=== PATIENT | female | born 1955 | race Caucasian/White ===

== ENCOUNTER → 2016-09-29 | Outpatient (CLI) | payer OTHER ==
[~2016-09-29] MED LIST: /ACETCOD2T PO; ALLE180T33 PO; NORC1TAB4 PO; TYLE325T5 PO; [UNRECOGNIZED DRUG - CODE] PO
--- NOTE | 2016-09-30 02:40 | REP ---
Clinical: Renal stones. Technique: Supine view of the abdomen and pelvis. Comparison: 02/24/2016. Findings: Bilateral renal calculi (left greater than right) are suggested and measure up to approximately 7 mm overlying the left mid to lower pole. The vague ill-defined calcification overlies the left psoas muscle at the level of the iliac crest measuring approximately 11 mm and may represent ureteral calculus. Further evaluation of the urinary tract system is limited due to overlying bowel gas and technique. No evidence for bowel obstruction. No organomegaly. Skeletal structures demonstrate age-related changes. Impression: Bilateral nephroureterolithiasis as described above incompletely evaluated due to overlying bowel gas. Consider noncontrast CT of the abdomen and pelvis if necessary. Signed by Malcolm Miranda MD 09/30/2016 02:32 A
== END ==
LOC: M SMT 09:47
PROVIDERS: ATTEND Urology
DX: N20.0 Calculus of kidney (principal); N20.2 Calculus of kidney with calculus of ureter

== ENCOUNTER → 2016-10-10 | Outpatient (CLI) | payer OTHER ==
--- NOTE | 2016-10-10 09:00 | REP ---
Clinical: Nephrolithiasis. Comparison: 03/04/2016. Findings: Moderate left hydroureteronephrosis appears to be secondary to an 11 mm obstructing calculus in the proximal ureter at the L4 level (images 67 - 70). Multiple left intrarenal calculi measure up to approximately 8 mm while single nonobstructing right intrarenal calculus is also identified measuring 2 mm. Liver, spleen, pancreas, gallbladder, and bilateral adrenal glands are normal. The enteric system is without obstruction or acute inflammatory process. Normal terminal ileum and appendix identified in the right lower quadrant. Pelvis demonstrates normal uterus and collapsed bladder. No ascites. No free air. No obvious adenopathy. Abdominal aorta is without aneurysm. Small fat containing periumbilical hernia measures 12 mm. Skeletal structures demonstrate age-related degenerative changes. Lung bases are essentially clear. Impression: 1. Moderate left-sided hydroureter nephrosis with 11 mm obstructing calculus in the mid ureter at the L4 level. 2 mm right intrarenal calculus and multiple left intrarenal calculi up to 8 mm. 2. 12 mm fat containing periumbilical hernia. 3. Age-related degenerative changes the musculoskeletal structures. Signed by Malcolm Miranda MD 10/10/2016 08:52 A
== END ==
LOC: M RAD 07:48
PROVIDERS: ATTEND Urology
DX: N20.0 Calculus of kidney (principal); K42.9 Umbilical hernia without obstruction or gangrene

== ENCOUNTER → 2016-10-11 | Outpatient (CLI) | payer OTHER ==
--- NOTE | 2016-10-11 11:58 | REP ---
Clinical: Nephrolithiasis . Comparison: 04/08/2016 . Technique: PA and lateral. Findings: The mediastinum and cardiac silhouette are normal. The lung gates are clear and without acute consolidation, effusion, or pneumothorax. The skeletal structures are intact and normal. Impression: 1. No acute cardiopulmonary process. Signed by Malcolm Miranda MD 10/11/2016 11:50 A
[2016-10-11 12:12] LABS: MEAN CORPUSCULAR HEMOGLOBIN 30.8 pg (27.0-33.0); MEAN CORPUSCULAR HGB CONC 34.4 g/dl (32.0-36.5); MEAN CORPUSCULAR VOLUME 89.7 fl (80.0-96.0); RED CELL DISTRIBUTION WIDTH 13.7 % (11.5-14.5); WHITE BLOOD COUNT 6.6 K/mm3 (4.0-10.0)
[2016-10-11 13:12] LABS: ALBUMIN/GLOBULIN RATIO 1.21 (1.00-1.93); ALKALINE PHOSPHATASE 123 U/L (45-117); ALT/SGPT 21 U/L (12-78); ANION GAP 8 MEQ/L (8-16); AST/SGOT 16 U/L (15-37); BLOOD UREA NITROGEN 17 MG/DL (7-18); CALCIUM LEVEL 9.3 MG/DL (8.8-10.2); CARBON DIOXIDE LEVEL 29 MEQ/L (21-32); CHLORIDE LEVEL 105 MEQ/L (98-107); GLOMERULAR FILTRATION RATE > 60.0 (>45); GLUCOSE, FASTING 78 MG/DL (80-110); POTASSIUM SERUM 3.6 MEQ/L (3.5-5.1); SODIUM LEVEL 142 MEQ/L (136-145); TOTAL PROTEIN 7.3 GM/DL (6.4-8.2)
--- NOTE | 2016-10-11 14:13 | ECGEPIP ---
Stationary ECG Study [facility] Test Date: 2016-10-11 Pat Name: VALENTINO LYONS Department: Room: - Gender: F Certified Surgical Tech/First Assistant: MAIA : [id number] Requested By: JOVANY Casillas Order Number: [id number] Reading MD: Su Echeverria Measurements Intervals [place] Rate: 77 P: 66 IA: 169 QRS: 8 QRSD: 118 T: 80 QT: 387 QTc: 441 Interpretive Statements SINUS RHYTHM WITH MARKED SINUS ARRHYTHMIA MODERATE INTRAVENTRICULAR CONDUCTION DELAY ILBBB ST & T-WAVE ABNORMALITY SIMILAR TO 04/08/16 Electronically Signed On 10-11-2016 14:13:26 EDT by Su Echeverria
== END ==
LOC: M LAB 11:06
PROVIDERS: ATTEND Urology
DX: N20.0 Calculus of kidney (principal)

== ENCOUNTER → 2016-10-12 | Day surgery (SDC) | payer OTHER ==
[~2016-10-12] VITALS: Ht 177.8 cm; Wt 96.6 kg
[~2016-10-12] MED LIST changes: +CONRAY-60 60% 50ML VIAL (Q9961) As Ordered ONE; +LIDOCAINE 2% INJ 100 MG/5 ML SDV (FOR ANES.) As Ordered ONE; +LR 1,000 ML IV SCH; +MIDAZOLAM INJ 2 MG/2 ML VIAL (J2250) As Ordered ONE; +ONDANSETRON 4MG/2ML VIAL (J2405) As Ordered ONE; +PROPOFOL 200 MG/20 ML VIAL As Ordered ONE; +dexameTHASONE 4 MG/ML 1ML VIAL (J1100) As Ordered ONE; +ePHEDrine SULFATE 25 MG/5 ML(5MG/ML) SYRINGE As Ordered ONE; +fentaNYL 100 MCG/2 ML INJECTION (J3010) As Ordered ONE
[2016-10-12 19:48] VITALS: BP 166/82
--- NOTE | 2016-10-13 07:42 | RO ---
DATE OF PROCEDURE: 10/12/2016 PREPROCEDURE DIAGNOSIS: Left kidney stone. POSTPROCEDURE DIAGNOSIS: Left kidney stone. PROCEDURE: Cystoscopy, left ureteroscopy with laser lithotripsy, left retrograde pyelogram with intraoperative interpretation of images, left ureteral stent placement. SURGEON: Dr. Kwasi Berry MACHINE RIGGER: None. ANESTHESIA: General. OPERATIVE INDICATIONS: This is a 60-year-old female with a long history of kidney stones who was originally found to have a 1 cm obstructing left ureteral stone as well as several stones inside the kidney. She was brought to the operating room today for treatment. DESCRIPTION OF PROCEDURE: The patient was brought to the operating room where general anesthesia was induced. Prophylactic antibiotics were infused. She was then placed in dorsal lithotomy position, prepped and draped in the usual sterile fashion. A rigid cystoscope was then inserted into the urethral meatus and advanced into the bladder. Once within the bladder, a wire was advanced up the left collecting system. Over the wire, we advanced ureteral access sheath up into the left collecting system. The wire was then secured to the drape to serve as a safety wire. We then went up the ureteral access sheath with a flexible ureteroscope. Within the mid ureter, 1 cm stone was seen. The stone was then fragmented into several tiny pieces using 200 Micron laser fiber. We then went up the more proximal ureter into the kidney. Within the kidney, several stones were seen, none of which were larger than 5 mm in size. All of these stones were then fragmented into tiny fragments that were small enough to pass. Once I confirmed that all the larger fragments had been dusted, a retrograde pyelogram was performed and was notable for moderate left hydronephrosis. At this point, the ureteroscope was withdrawn along with the ureteral access sheath and no additional large stones were seen. We then utilized the previously placed wire to advance a #6-Haitian x 22-32 cm JJ ureteral stent up to the left collecting system. The wire was then removed and there was adequate curl to the stent in the left renal pelvis and in the bladder. At this point, the bladder was then emptied of all fluid and this marked the conclusion of the procedure. The patient was then taken out of dorsal lithotomy position, awakened from anesthesia and transported to the recovery room in stable condition. ESTIMATED BLOOD LOSS: 0 mL. COMPLICATIONS: None. SPECIMENS: Kidney stone fragments. PLAN: The patient will followup in clinic in a few weeks for stent removal.
--- NOTE | 2016-10-13 08:35 | REP ---
Retrograde ureterogram: Three views. History: Nephrolithiasis. 24 seconds of fluoroscopy time is reported. Findings: A sequence of three fluoroscopically obtained last image hold spot radiographs of the left abdomen document left ureteral cannulation, contrast injection, left-sided hydronephrosis, and double pigtail left ureteral stenting. Signed by Tucker Chang MD 10/13/2016 08:36 A
== END | disposition home or self-care (01) ==
LOC: M SDC 14:44
PROVIDERS: ATTEND Urology
DX: N20.0 Calculus of kidney (principal); K76.0 Fatty (change of) liver, not elsewhere classified; R87.612 Low grade squamous intraepithelial lesion on cytologic smear of cervix (LGSIL); T88.59XD Other complications of anesthesia, subsequent encounter; Z88.2 Allergy status to sulfonamides; Z88.5 Allergy status to narcotic agent; Z91.048 Other nonmedicinal substance allergy status; Z91.018 Allergy to other foods; Z79.899 Other long term (current) drug therapy; Z78.0 Asymptomatic menopausal state
CPT/HCPCS: 52356; 74420; 82360; 88300; C1726; C1894; C2617; J0690; J1100; J2250; J2405; J3010; Q9961

== ENCOUNTER 2016-11-05 22:47 | Emergency (ER) | payer OTHER ==
[~2016-11-05] VITALS: Ht 177.8 cm; Wt 96.6 kg
[~2016-11-05 22:47] MED LIST changes: -CONRAY-60 60% 50ML VIAL (Q9961) As Ordered ONE; -LIDOCAINE 2% INJ 100 MG/5 ML SDV (FOR ANES.) As Ordered ONE; -LR 1,000 ML IV SCH; -MIDAZOLAM INJ 2 MG/2 ML VIAL (J2250) As Ordered ONE; -ONDANSETRON 4MG/2ML VIAL (J2405) As Ordered ONE; -PROPOFOL 200 MG/20 ML VIAL As Ordered ONE; -dexameTHASONE 4 MG/ML 1ML VIAL (J1100) As Ordered ONE; -ePHEDrine SULFATE 25 MG/5 ML(5MG/ML) SYRINGE As Ordered ONE; -fentaNYL 100 MCG/2 ML INJECTION (J3010) As Ordered ONE
[2016-11-05] MEDS: APIXABAN 5 MG TAB (ELIQUIS) PO ONE ×2 (23:13→23:49)
[2016-11-05 23:48] LABS: BASO % 0.4 % (0.0-1.0); EOS # 0.2 K/mm3 (0.0-0.50); EOS % 2.5 % (0.0-3.0); LARGE UNSTAINED CELL # 0.2 K/mm3 (0.0-0.4); LARGE UNSTAINED CELL % 1.9 % (0.0-4.0); LYMPH # 1.7 K/mm3 (1.5-4.5); LYMPH % 19.2 % (24.0-44.0); MEAN CORPUSCULAR HEMOGLOBIN 30.3 pg (27.0-33.0); MEAN CORPUSCULAR HGB CONC 34.1 g/dl (32.0-36.5); MEAN CORPUSCULAR VOLUME 88.8 fl (80.0-96.0); MONO # 0.5 K/mm3 (0.0-0.8); MONO % 5.9 % (0.0-5.0); NEUTROPHILS # 5.7 K/mm3 (1.8-7.7); PLATELET COUNT, AUTOMATED 242 k/mm3 (150-450); WHITE BLOOD COUNT 8.2 K/mm3 (4.0-10.0)
[2016-11-05 23:59] LABS: INR 0.89
[2016-11-06] MEDS ORDERED: diltiaZEM **CD** 180 MG CAP PO ONE
[2016-11-06 00:11] VITALS: BP 142/73
[2016-11-06 00:36] LABS: CREATININE FOR GFR 1.02 MG/DL (0.55-1.02); GLOMERULAR FILTRATION RATE 58.7 (>45); POTASSIUM SERUM 3.5 MEQ/L (3.5-5.1); THYROXINE (T4) 6.6 UG/DL (4.5-12.0)
[2016-11-06] MEDS ORDERED: NS 1,000 ML IV ONE (01:00)
[2016-11-06 02:57] VITALS: BP 154/99
[2016-11-06] MEDS ORDERED: ELIQ5TAB PO (03:03)
[2016-11-06] MEDS ORDERED: CARD180C4 PO (03:04)
== END 2016-11-06 03:24 | disposition home or self-care (01) ==
LOC: M ED 11-06 00:18
DX: I48.91 Unspecified atrial fibrillation (principal); E03.9 Hypothyroidism, unspecified; Z87.442 Personal history of urinary calculi; Z79.899 Other long term (current) drug therapy; Z88.2 Allergy status to sulfonamides; Z88.5 Allergy status to narcotic agent; Z91.09 Other allergy status, other than to drugs and biological substances

== ENCOUNTER → 2017-02-06 | Outpatient (CLI) | payer OTHER ==
[~2017-02-06] MED LIST changes: +CARD180C4 PO; +ELIQ5TAB PO
--- NOTE | 2017-02-06 15:05 | REP ---
Clinical: Nephrolithiasis. Comparison: 09/29/2016. Findings: Previously identified 11 mm left mid ureteral calculus appears to have resolved. Multiple nonobstructing left renal calculi are identified measuring up to approximately 8 mm and unchanged. Further evaluation of the urinary tract system is limited due to overlying bowel gas and technique. No evidence for bowel obstruction. No organomegaly. Skeletal structures demonstrate age-related degenerative changes. Impression: 1. Previous ureteral calculus appears to have resolved. 2. Multiple nonobstructing left renal calculi similar to prior examination up to 8 mm. Signed by Malcolm Miranda MD 02/06/2017 02:57 P
== END ==
LOC: M SMT 14:15
PROVIDERS: ATTEND Urology
DX: N20.0 Calculus of kidney (principal)

== ENCOUNTER → 2017-07-06 | Outpatient (CLI) | payer OTHER | LOC: M SLEEP 19:35 | DX: R06.83 Snoring (principal) | CPT/HCPCS: 95810 ==

== ENCOUNTER → 2017-08-03 | Outpatient (CLI) | payer OTHER | LOC: M SLEEP 19:32 | DX: G47.33 Obstructive sleep apnea (adult) (pediatric) (principal); G47.61 Periodic limb movement disorder | CPT/HCPCS: 95811 ==

== ENCOUNTER → 2017-08-08 | Outpatient (CLI) | payer OTHER | LOC: M SMT 14:11 | DX: N20.0 Calculus of kidney (principal) ==

== ENCOUNTER → 2017-09-13 | Outpatient (CLI) | payer OTHER | LOC: M WHC 13:45 | DX: Z12.31 Encounter for screening mammogram for malignant neoplasm of breast (principal); Z13.820 Encounter for screening for osteoporosis | CPT/HCPCS: 77067 ==

== ENCOUNTER → 2017-12-15 | Outpatient (CLI) | payer OTHER ==
[2017-12-15 12:43] LABS: HEMATOCRIT 44.2 % (36.0-47.0); HEMOGLOBIN 14.5 g/dl (12.0-15.5); MEAN CORPUSCULAR HEMOGLOBIN 30.7 pg (27.0-33.0); MEAN CORPUSCULAR HGB CONC 32.8 g/dl (32.0-36.5); MEAN CORPUSCULAR VOLUME 93.6 fl (80.0-96.0); PLATELET COUNT, AUTOMATED 228 10^3/uL (150-450); RED BLOOD COUNT 4.72 10^6/uL (4.00-5.40); RED CELL DISTRIBUTION WIDTH 13.1 % (11.5-14.5); WHITE BLOOD COUNT 7.6 10^3/uL (4.0-10.0)
[2017-12-15 13:09] LABS: ALBUMIN 3.8 GM/DL (3.2-5.2); ALBUMIN/GLOBULIN RATIO 1.03 (1.00-1.93); ALKALINE PHOSPHATASE 146 U/L (45-117); ALT/SGPT 26 U/L (12-78); ANION GAP 9 MEQ/L (8-16); AST/SGOT 19 U/L (7-37); BLOOD UREA NITROGEN 16 MG/DL (7-18); CALCIUM LEVEL 9.1 MG/DL (8.8-10.2); CARBON DIOXIDE LEVEL 27 MEQ/L (21-32); CHLORIDE LEVEL 107 MEQ/L (98-107); CHOLESTEROL LEVEL 279 MG/DL (<200); CHOLESTEROL RISK RATIO 5.264 (<5); CREATININE FOR GFR 0.87 MG/DL (0.55-1.30); FREE T4 0.81 NG/DL (0.76-1.46); GLOMERULAR FILTRATION RATE > 60.0 (>45); GLUCOSE, FASTING 85 MG/DL (70-100); HDL CHOLESTEROL 53 MG/DL (>40); LDL CHOLESTEROL 181.2 MG/DL (<100); NON-HDL-C 226 MG/DL; POTASSIUM SERUM 4.1 MEQ/L (3.5-5.1); SODIUM LEVEL 143 MEQ/L (136-145); TOTAL PROTEIN 7.5 GM/DL (6.4-8.2); TRIGLYCERIDES LEVEL 224 MG/DL (<150)
== END ==
LOC: M SMT 08:52
DX: I48.0 Paroxysmal atrial fibrillation (principal); E78.5 Hyperlipidemia, unspecified
CPT/HCPCS: 84443

== ENCOUNTER → 2018-05-14 | Outpatient (REF) | payer OTHER | LOC: M SFHCPLAZ 17:32 | PROVIDERS: ATTEND Dermatology | DX: D23.5 Other benign neoplasm of skin of trunk (principal) ==

== ENCOUNTER → 2018-06-08 | Outpatient (CLI) | payer OTHER ==
[2018-06-08 13:28] LABS: CHOLESTEROL RISK RATIO 4.745 (<5)
== END ==
LOC: M SMT 07:55
PROVIDERS: ATTEND Family Medicine
DX: E78.5 Hyperlipidemia, unspecified (principal)

== ENCOUNTER → 2018-08-10 | Outpatient (CLI) | payer OTHER ==
--- NOTE | 2018-08-10 14:29 | REP ---
KUB one-view History: Kidney stones Comparison: 08/08/2017 Air is present in small and large intestine. There are no air-fluid levels or dilated loops of intestine. There is no pneumoperitoneum. Calcifications are present overlying the left kidney consistent with nephrolithiasis. There is a possible punctate calcification overlying the right kidney. Impression: Left nephrolithiasis. Electronically Signed by Cali De La Garza MD 08/10/2018 02:21 P
== END ==
LOC: M SMT 13:50
PROVIDERS: ATTEND Urology
DX: N20.0 Calculus of kidney (principal)

== ENCOUNTER → 2018-09-14 | Outpatient (CLI) | payer OTHER ==
[~2018-09-14] MED LIST changes: -/ACETCOD2T PO; +ACET1TAB15 PO; -NORC1TAB4 PO; +NORC1TAB7 PO
--- NOTE | 2018-09-14 09:54 | REP ---
KUB: Single view. History: Kidney stones. Comparison KUB study August 10, 2018. Comparison CT study October 10, 2016. Findings: There are multiple large calculi projecting over the left lower pole renal silhouette and medially consistent with renal pelvic region of the junction stone. This and the junction calculus is a large calculus measuring 23 by 11 mm. This calculi are larger and more numerous than on the 2017 CT study. There is no significant change from the August 10, 2018 study. Impression: Upper tract calculi on the left including a 23 mm calcific density in the region of the ureteropelvic junction. Electronically Signed by Tucker Chang MD 09/14/2018 09:46 A
--- NOTE | 2018-09-14 10:34 | REP ---
CT abdomen and pelvis without IV or oral contrast: Renal stone protocol. History: Kidney stones. Comparison made with today's KUB. Comparison CT study is from October 10, 2016. CT findings: Preliminary digital seed packer radiograph shows urinary tract calculi in the left mid abdomen. Bowel gas pattern is unremarkable. Axial CT images demonstrate an minimal linear fibrosis in the lung bases. No pleural effusion is seen. No hepatic or splenic lesion is seen. No evidence of adrenal mass is observed. No abnormalities noted in the gallbladder or pancreas. Normal appendix is seen. Small and large intestinal bowel loops are unremarkable. No uterine or adnexal pathology is appreciated. There is bilateral intrarenal nephrolithiasis. There are two intrarenal calculi in the mid pole region of the right kidney, the largest of which measures 4 mm. There is no evidence of right-sided hydronephrosis. On the left, there is a large irregular calculus at the ureteropelvic junction producing moderate hydronephrosis of the left kidney. This calculus measures 2.0 cm in greatest craniocaudal span by CT. There is some UPJ mural thickening and periureteral stranding. There are multiple fairly large intrarenal calculi in the left kidney. These number 12-13 in total. The largest along the intrarenal calculi range in size up to 1.1 cm. No other ureteral calculus is seen. No bladder calculus is observed. There is a posterior peripheral cyst in the lower pole left kidney. This cyst is unchanged. Bone window settings show degenerative changes in the lumbar spine. Impression: Bilateral intrarenal nephrolithiasis. There is a 2 cm obstructing calculus in the ureteropelvic junction on the left with moderate hydronephrosis and some meche pelvic/periureteral edema. Multiple large intrarenal calculi are noted in the left kidney as well. Two smaller calculi are noted on the right. No right-sided hydronephrosis. Electronically Signed by Tucker Chang MD 09/14/2018 03:11 P
== END ==
LOC: M RAD 08:52
PROVIDERS: ATTEND Urology
DX: N20.0 Calculus of kidney (principal)

== ENCOUNTER → 2018-10-09 | Outpatient (CLI) | payer OTHER ==
[~2018-10-09] MED LIST changes: +ASPI81TA26 PO
--- NOTE | 2018-10-09 09:20 | REP ---
Clinical: Preoperative assessment . Comparison: 10/11/2016. Technique: PA and lateral. Findings: The mediastinum and cardiac silhouette are normal. Airway is patent and midline. The lung gates are clear and without acute consolidation, effusion, or pneumothorax. The skeletal structures are intact and normal. Impression: 1. No acute cardiopulmonary process. Electronically Signed by Malcolm Miranda MD 10/09/2018 09:11 A
[2018-10-09 13:37] LABS: HEMOGLOBIN 14.4 g/dl (12.0-15.5); MEAN CORPUSCULAR HEMOGLOBIN 29.9 pg (27.0-33.0); MEAN CORPUSCULAR VOLUME 93.6 fl (80.0-96.0); PLATELET COUNT, AUTOMATED 281 10^3/uL (150-450); RED BLOOD COUNT 4.81 10^6/uL (4.00-5.40); WHITE BLOOD COUNT 8.7 10^3/uL (4.0-10.0)
[2018-10-09 14:06] LABS: BLOOD UREA NITROGEN 16 MG/DL (7-18); CALCIUM LEVEL 9.2 MG/DL (8.8-10.2); CARBON DIOXIDE LEVEL 31 MEQ/L (21-32); CHLORIDE LEVEL 103 MEQ/L (98-107); GLOMERULAR FILTRATION RATE > 60.0 (>45); GLUCOSE, FASTING 86 MG/DL (70-100); POTASSIUM SERUM 4.1 MEQ/L (3.5-5.1); SODIUM LEVEL 139 MEQ/L (136-145)
== END ==
LOC: M SMT 08:52
PROVIDERS: ATTEND Urology
DX: Z01.818 Encounter for other preprocedural examination (principal); N20.0 Calculus of kidney; N39.0 Urinary tract infection, site not specified

== ENCOUNTER 2018-10-19 07:10 | Day surgery (SDC) | payer OTHER ==
[~2018-10-19] VITALS: Ht 177.8 cm; Wt 92.6 kg
[2018-10-19] MEDS ORDERED: ONDANSETRON 4MG/2ML VIAL (J2405) IV PRN ×2 (07:15→11:30)
[2018-10-19] MEDS ORDERED: fentaNYL 100 MCG/2 ML INJECTION (J3010) IV PRN ×2 (07:15→11:30)
[2018-10-19] MEDS ORDERED: LR 1,000 ML IV SCH ×2 (07:15→11:30)
[2018-10-19] MEDS ORDERED: PERCOCET 5MG/325MG TAB PO PRN (07:15)
[2018-10-19] MEDS ORDERED: ceFAZolin 2 GM/D5W 50 ML IV BAG (J0690 PER 500MG) As Ordered ONE (07:38)
[2018-10-19] MEDS ORDERED: ONDANSETRON 4MG/2ML VIAL (J2405) As Ordered ONE (08:14)
[2018-10-19] MEDS ORDERED: dexameTHASONE 4 MG/ML 1ML VIAL (J1100) As Ordered ONE (08:14)
[2018-10-19] MEDS ORDERED: PROPOFOL 200 MG/20 ML VIAL As Ordered ONE (08:14)
[2018-10-19] MEDS ORDERED: LIDOCAINE 2% INJ 100 MG/5 ML SDV (FOR ANES.) As Ordered ONE (08:14)
[2018-10-19] MEDS ORDERED: MIDAZOLAM INJ 2 MG/2 ML VIAL (J2250) As Ordered ONE (08:15)
[2018-10-19] MEDS ORDERED: fentaNYL 100 MCG/2 ML INJECTION (J3010) As Ordered ONE (08:15)
[2018-10-19] MEDS ORDERED: CONRAY-60 60% 50ML VIAL (Q9961) As Ordered ONE (08:39)
[2018-10-19] MEDS ORDERED: ePHEDrine SULFATE 25 MG/5 ML(5MG/ML) SYRINGE As Ordered ONE (09:54)
[2018-10-19] MEDS ORDERED: METOCLOPRAMIDE INJ 10MG/2ML VIAL (J2765) IV PRN (11:30)
[2018-10-19] MEDS ORDERED: NORCO, ANEXSIA 5/325MG TABLET (HYDROcodone/ACETAMINOPHEN) PO PRN (11:30)
--- NOTE | 2018-10-19 12:05 | REP ---
C-ARM VIEWS DURING LEFT URETERAL STENT PLACEMENT: Two C-Arm views demonstrate the left ureteral stent with the proximal end coiled in the region of the left renal pelvis and the distal end coiled in the region of the urinary bladder. 17 seconds of fluoroscopy time utilized. Electronically Signed by Rui Jones MD 10/23/2018 09:57 A
[2018-10-19 12:43] VITALS: BP 135/75
--- NOTE | 2018-10-19 16:16 | RO ---
DATE OF PROCEDURE: 10/19/2018 PREPROCEDURE DIAGNOSIS: Left kidney stones. POSTPROCEDURE DIAGNOSIS: Left kidney stones. PROCEDURE: Cystoscopy, left ureteroscopy with laser lithotripsy and basket extraction of stones, left retrograde pyelogram with intraoperative interpretation of images, left ureteral stent placement. SURGEON: Kwasi Berry MD FIELD CANE SCALER: None. ANESTHESIA: General. OPERATIVE INDICATIONS: This is a 63-year-old female with a long history of kidney stones who on recent CT scan was found to have obstructing 1-1/2 to 2 cm left ureteropelvic junction stone, as well as additional stones inside the kidney. She was brought to the operating room today for treatment. DESCRIPTION OF PROCEDURE: The patient was brought to the operating room and general anesthesia induced. Prophylactic antibiotics were infused. She was then placed in the dorsal lithotomy position and prepped and draped in the usual sterile fashion. A rigid cystoscope was inserted into the urethral meatus and advanced into the bladder. Once inside the bladder, a guidewire was advanced up the left collecting system. I then advanced the ureteral access sheath up the left collecting system. I went up the access sheath with a flexible ureteroscope and at the level of the ureteropelvic junction, a 1-1/2 to 2 cm size stone was seen. The stone was then fragmented into several smaller pieces using a 272 micron laser fiber. All the fragments were then removed using a basket. I then examined the kidney, and a few additional stones were seen within the kidney, the largest of which was approximately 6-7 mm. The larger stones were fragmented into smaller pieces and all the pieces were removed using a basket. Once done, the only stones remaining in the kidney were no more than 1 mm in size and were all small enough to pass. At this point, a retrograde pyelogram was performed, notable for moderate to severe left hydronephrosis, no extravasation. I then withdrew the ureteroscope along with the access sheath and no additional stones were seen within the ureter. I then utilized the previously placed wire to advance a 7-Estonian x 22-32 cm JJ ureteral stent up to the left collecting system. The wire was then removed, and there were adequate curls of the stent in the left renal pelvis and the bladder. The bladder was emptied of all fluids, and this marked the conclusion of the procedure. The patient was then taken out of the dorsal lithotomy position, awakened from anesthesia and transferred to the recovery room in stable condition. Estimated blood loss: 5 mL. Complications: None. Specimens: Kidney stone fragments. PLAN: The patient will followup in the clinic in a few weeks for stent removal.
[2018-10-27 00:14] LABS: CA Oxalate Dihy 10 % (.); Ca Ox Monohydrate 80 % (.)
== END 2018-10-19 12:45 | disposition home or self-care (01) ==
LOC: M SDC 07:10
PROVIDERS: ATTEND Urology
DX: N20.0 Calculus of kidney (principal); I48.0 Paroxysmal atrial fibrillation; G47.30 Sleep apnea, unspecified; Z79.82 Long term (current) use of aspirin; Z79.899 Other long term (current) drug therapy; Z88.2 Allergy status to sulfonamides; Z88.8 Allergy status to other drugs, medicaments and biological substances
CPT/HCPCS: 52356; 74420; 82360; 88300; C1769; C1894; C2617; J0690; J1100; J2250; J2405; J3010; Q9961

== ENCOUNTER → 2019-02-11 | Outpatient (CLI) | payer OTHER ==
[~2019-02-11] MED LIST changes: +CALC1CAP PO; +CLEAPOW10 PO; +POTA10808 PO; +VITA100054 PO
[2019-02-11 11:26] LABS: HEMATOCRIT 44.6 % (36.0-47.0); HEMOGLOBIN 14.5 g/dl (12.0-15.5); MEAN CORPUSCULAR HEMOGLOBIN 30.7 pg (27.0-33.0); MEAN CORPUSCULAR HGB CONC 32.5 g/dl (32.0-36.5); MEAN CORPUSCULAR VOLUME 94.5 fl (80.0-96.0); PLATELET COUNT, AUTOMATED 229 10^3/uL (150-450); RED BLOOD COUNT 4.72 10^6/uL (4.00-5.40); WHITE BLOOD COUNT 6.4 10^3/uL (4.0-10.0)
[2019-02-11 12:23] LABS: ALBUMIN 3.8 GM/DL (3.2-5.2); ALT/SGPT 21 U/L (12-78); BILIRUBIN,TOTAL 0.8 MG/DL (0.2-1.0); BLOOD UREA NITROGEN 19 MG/DL (7-18); CALCIUM LEVEL 9.2 MG/DL (8.8-10.2); CARBON DIOXIDE LEVEL 30 MEQ/L (21-32); CHLORIDE LEVEL 105 MEQ/L (98-107); CHOLESTEROL LEVEL 261 MG/DL (<200); CHOLESTEROL RISK RATIO 4.833 (<5); CREATININE FOR GFR 0.83 MG/DL (0.55-1.30); FREE T4 0.84 NG/DL (0.76-1.46); GLOMERULAR FILTRATION RATE > 60.0 (>45); GLUCOSE, FASTING 75 MG/DL (70-100); HDL CHOLESTEROL 54 MG/DL (>40); LDL CHOLESTEROL 166 MG/DL (<100); NON-HDL-C 207 MG/DL; POTASSIUM SERUM 4.1 MEQ/L (3.5-5.1); SODIUM LEVEL 143 MEQ/L (136-145); TOTAL PROTEIN 6.9 GM/DL (6.4-8.2); TRIGLYCERIDES LEVEL 205 MG/DL (<150)
== END ==
LOC: M SMT 09:13
PROVIDERS: ATTEND Family Medicine
DX: E78.5 Hyperlipidemia, unspecified (principal); I48.0 Paroxysmal atrial fibrillation

== ENCOUNTER → 2019-05-07 | Outpatient (CLI) | payer OTHER ==
[~2019-05-07] MED LIST changes: -CALC1CAP PO; -CLEAPOW10 PO; -POTA10808 PO; -VITA100054 PO
--- NOTE | 2019-05-07 16:57 | REP ---
KUB: Two views: History: Kidney stone. Comparison study CT exam September 14, 2018. Findings: There are multiple calcific opacities projecting over the left kidney lower pole region. The largest of these is 19 mm in greatest diameter. The large renal pelvic calculus seen at the time of the prior CT study is no longer apparent. No ureteral calculus is observed. No intrarenal calculus is seen projecting on the right. There is a calcification overlying the right psoas margin today however measuring 6 mm in diameter. This could be a ureteral stone. There are degenerative sclerotic changes in the SI joints and symphysis pubis. Impression: Intrarenal nephrolithiasis lower pole left kidney. Question right mid ureteral stone. Electronically Signed by Tucker Chang MD 05/07/2019 05:22 P
[2019-05-07 18:47] LABS: APPEARANCE, URINE HAZY (CLEAR); BACTERIA, URINE AUTO 1+ (NEGATIVE); BILIRUBIN, URINE AUTO NEGATIVE (NEGATIVE); BLOOD, URINE BLOOD 3+ (NEGATIVE); CALCIUM OXALATE CRYSTALS SMALL; COLOR, URINE YELLOW (YELLOW); GLUCOSE, URINE (UA) AUTO NEGATIVE (NEGATIVE); KETONE, URINE AUTO NEGATIVE (NEGATIVE); LEUKOCYTE ESTERASE, URINE AUTO 1+ (NEGATIVE); MUCUS, URINE SMALL (NEGATIVE); NITRITE, URINE AUTO NEGATIVE (NEGATIVE); PROTEIN, URINE AUTO 1+ mg/dL (NEGATIVE); RBC, URINE AUTO TNTC /HPF (0-3); SPECIFIC GRAVITY URINE AUTO 1.006 (1.002-1.035); SQUAMOUS EPITHELIAL CELL UR AU 0 /HPF (0-6); UROBILINOGEN, URINE AUTO 0.2 mg/dL (0.0-2.0); WBC, URINE AUTO 12 /HPF (0-3)
== END ==
LOC: M ADAMS 14:52
PROVIDERS: ATTEND Family Medicine
DX: N20.0 Calculus of kidney (principal); R39.89 Other symptoms and signs involving the genitourinary system

== ENCOUNTER → 2019-05-16 | Outpatient (CLI) | payer OTHER ==
--- NOTE | 2019-05-17 10:51 | REP ---
CT ABDOMEN AND PELVIS WITHOUT IV OR ORAL CONTRAST: HISTORY: Kidney stones. Comparison CT study September 14, 2018. CT FINDINGS: Digital preliminary urologic surgeon radiograph demonstrates mild levoconvex curve in the lumbar spine. Bowel gas pattern is normal. The lung bases are essentially clear on axial CT images. There is no evidence of pleural effusion or upper abdominal ascites. The liver and the spleen are normal in size homogeneous in texture. No adrenal lesion is seen. No abnormality is noted in the gallbladder or in the pancreas. No retroperitoneal mass or adenopathy is observed. There is bilateral intrarenal nephrolithiasis. The right kidney contains one intrarenal calculus 2-3 mm in size of at the upper pole collecting system. In the left kidney, there are multiple calculi in the lower pole collecting system including two adjacent fairly large calculi which may be in the parenchyma rather than in a ana luisa. These measure 8 and 11 mm in greatest diameter respectively. There is also a 7 mm calculus in the lower pole adjacent to this and several smaller calculi in the left kidney. There is no evidence of hydronephrosis on either side. No ureteral calculus is observed. No bladder calculus is seen. No uterine or ovarian abnormality is seen. Normal appendix is noted in the right lower quadrant. No abdominal wall defect seen. IMPRESSION: Bilateral intrarenal nephrolithiasis. No hydronephrosis seen. The large calculus noted in the renal pelvis and the hydronephrosis associated with this on the September 14, 2018 prior study have resolved. Electronically Signed by Tucker Chang MD 05/17/2019 12:07 P
== END ==
LOC: M RAD 15:42
PROVIDERS: ATTEND Urology
DX: N20.0 Calculus of kidney (principal)

== ENCOUNTER → 2019-06-11 | Outpatient (REF) | payer OTHER | LOC: M LAB REF 18:29 | PROVIDERS: ATTEND Dermatology | DX: D22.5 Melanocytic nevi of trunk (principal) ==

== ENCOUNTER → 2019-06-19 | Outpatient (REF) | payer OTHER ==
[~2019-06-19] MED LIST changes: +CALC1CAP PO; +CLEAPOW10 PO; +POTA10808 PO; +VITA100054 PO
== END ==
LOC: M SMT 13:03
PROVIDERS: ATTEND Urology
DX: Z01.818 Encounter for other preprocedural examination (principal); N20.0 Calculus of kidney; N39.0 Urinary tract infection, site not specified

== ENCOUNTER 2019-06-28 08:07 | Day surgery (SDC) | payer OTHER ==
[~2019-06-28] VITALS: Ht 177.8 cm; Wt 96.6 kg
[~2019-06-28 08:07] MED LIST changes: +LR 1,000 ML IV ONE; +ceFAZolin SOD 2 GM in IV 1 EA IV ONE
[2019-06-28] MEDS ORDERED: CONRAY-60 60% 50ML VIAL (Q9961) As Ordered ONE ×2 (08:08→10:24)
[2019-06-28] MEDS ORDERED: fentaNYL 100 MCG/2 ML INJECTION (J3010) As Ordered ONE (08:14)
[2019-06-28] MEDS ORDERED: LIDOCAINE 2% INJ 100 MG/5 ML SDV (FOR ANES.) As Ordered ONE (08:14)
[2019-06-28] MEDS ORDERED: propofoL 200 MG/20 ML VIAL As Ordered ONE (08:14)
[2019-06-28] MEDS ORDERED: ONDANSETRON 4MG/2ML VIAL (J2405) As Ordered ONE (08:14)
[2019-06-28] MEDS ORDERED: dexameTHASONE 4 MG/ML 1ML VIAL (J1100) As Ordered ONE (08:14)
[2019-06-28] MEDS ORDERED: MIDAZOLAM INJ 2 MG/2 ML VIAL (J2250) As Ordered ONE (08:14)
[2019-06-28] MEDS ORDERED: ePHEDrine SULFATE 25 MG/5 ML(5MG/ML) SYRINGE As Ordered ONE (11:06)
[2019-06-28] MEDS ORDERED: PHENYLephrine HCL 500 MCG/5 ML (100MCG/ML) SYRINGE (J2370) As Ordered ONE (11:21)
[2019-06-28] MEDS ORDERED: LR 1,000 ML IV SCH (13:00)
[2019-06-28] MEDS ORDERED: ONDANSETRON 4MG/2ML VIAL (J2405) IV PRN (13:00)
[2019-06-28] MEDS ORDERED: oxyBUTYnin 5 MG TAB PO PRN (13:00)
[2019-06-28] MEDS ORDERED: fentaNYL 100 MCG/2 ML INJECTION (J3010) IV PRN (13:00)
[2019-06-28] MEDS ORDERED: METOCLOPRAMIDE INJ 10MG/2ML VIAL (J2765) IV PRN (13:00)
--- NOTE | 2019-06-28 13:59 | REP ---
C-ARM VIEWS ABDOMEN DURING PLACEMENT OF LEFT URETERAL STENT: Two C-arm views of the abdomen performed. There is placement of a left ureteral stent with the proximal end coiled in the left renal pelvis and the distal end of the urinary bladder. Left pelvicaliceal system is partially opacified with contrast and is mild to moderately dilated. 31 seconds of fluoroscopy time utilized. Electronically Signed by Rui Jones MD 06/28/2019 03:34 P
[2019-06-28 14:00] VITALS: BP 149/73
--- NOTE | 2019-06-28 20:17 | RO ---
DATE OF PROCEDURE: 06/28/2019 PREPROCEDURE DIAGNOSIS: Left kidney stones. POSTPROCEDURE DIAGNOSIS: Left kidney stones. PROCEDURE: Cystoscopy, left ureteroscopy with laser lithotripsy and basket extraction of stones, left retrograde pyelogram with intraoperative interpretation of images, left ureteral stent placement. SURGEON: Kwasi Berry MD INDUSTRIAL SERVICER: None. ANESTHESIA: General. OPERATIVE INDICATIONS: This is a 63-year-old female with a history of kidney stones who was found to have recurrent kidney stones on the left. She was brought to the operating room today for the above listed procedure. DESCRIPTION OF PROCEDURE: The patient was brought to the operating room and general anesthesia was induced. Prophylactic antibiotics were infused. She was then placed in the dorsal lithotomy position and prepped and draped in the usual sterile fashion. A rigid cystoscope was then inserted into the urethral meatus and advanced to the bladder. A guidewire was then advanced up the left collecting system. I then advanced a ureteral access sheath up the left collecting system. I went up the access sheath with a flexible ureteroscope and examined the left kidney thoroughly. Within upper pole calyces, two stones were seen, each measuring around 3 mm in size. Both of these stones were grabbed with a basket and removed. Within a lower pole calyx, there appeared to be stones on fluoroscopy, but I could not see them directly inside the calyx with direct vision. Upon further inspection, there appeared to be a stenotic infundibulum, and the stones were trapped within that calyx. At this point, I utilized a 200 micron laser fiber to laser this area and open infundibulum up. This did reveal stones. I then utilized the laser to fragment some of these stones into smaller pieces, and the pieces were removed using a basket. Of note, considering the tight infundibulum and the small space of that calyx, I could not access all the stones, but it did appear that I got the majority of the stones inside out. At this point, a retrograde pyelogram was performed. It was notable for moderate left hydronephrosis, no extravasation. I then withdrew the ureteroscope along with the access sheath and no additional stones were seen within the ureter. I then utilized the previously placed wire to advance a 7-Estonian x 22-32 cm JJ ureteral stent into the left collecting system. The wire was removed, and there were adequate curls of the stent in the left renal pelvis and in the bladder. The bladder was emptied of all fluids, and this marked the conclusion of the procedure. The patient was taken out of the dorsal lithotomy position, awakened from anesthesia and transported to the recovery room in stable condition. Estimated blood loss: 5 mL. Complications: None. Specimens: Kidney stone fragments. PLAN: The patient will followup in the clinic in a few weeks for stent removal.
== END 2019-06-28 14:05 | disposition home or self-care (01) ==
LOC: M SDC 08:07
PROVIDERS: ATTEND Urology
DX: N20.0 Calculus of kidney (principal); I48.91 Unspecified atrial fibrillation; G47.30 Sleep apnea, unspecified; Z79.82 Long term (current) use of aspirin; Z79.899 Other long term (current) drug therapy; Z88.2 Allergy status to sulfonamides; Z88.5 Allergy status to narcotic agent
CPT/HCPCS: 52356; 74420; 82360; 88300; C1769; J0690; J1100; J2250; J2370; J2405; J3010; Q9961

== ENCOUNTER → 2019-08-06 | Outpatient (REF) | payer OTHER ==
[~2019-08-06] MED LIST changes: -LR 1,000 ML IV ONE; -ceFAZolin SOD 2 GM in IV 1 EA IV ONE
== END ==
LOC: M LAB REF 18:40
PROVIDERS: ATTEND Dermatology
DX: D22.5 Melanocytic nevi of trunk (principal)

== ENCOUNTER → 2020-03-10 | Outpatient (CLI) | payer OTHER ==
--- NOTE | 2020-03-13 08:49 | REP ---
ABDOMINAL RADIOGRAPHS: 03/10/20. CLINICAL: Kidney stone. TECHNIQUE: Single supine view of the abdomen and pelvis. FINDINGS: Multiple calcifications overlie the left kidney measuring up to approximately 11mm. Further evaluation of the urinary tract system is limited due to overlying bowel gas and technique. No bowel obstruction. Skeletal structures demonstrate age related degenerative changes. IMPRESSION: Presumed left renal calculi measuring up to 11mm. MTDD
== END ==
LOC: M RAD 09:43
PROVIDERS: ATTEND Urology
DX: N20.0 Calculus of kidney (principal)

== ENCOUNTER → 2020-03-24 | Outpatient (REF) | payer OTHER ==
[2020-03-24 17:35] LABS: HEMATOCRIT 44.6 % (36.0-47.0); MEAN CORPUSCULAR HEMOGLOBIN 29.7 pg (27.0-33.0); MEAN CORPUSCULAR HGB CONC 31.4 g/dl (32.0-36.5); MEAN CORPUSCULAR VOLUME 94.5 fl (80.0-96.0); PLATELET COUNT, AUTOMATED 238 10^3/uL (150-450); RED BLOOD COUNT 4.72 10^6/uL (4.00-5.40); WHITE BLOOD COUNT 7.3 10^3/uL (4.0-10.0)
[2020-03-24 18:14] LABS: ALBUMIN 3.9 GM/DL (3.2-5.2); ALT/SGPT 19 U/L (12-78); BILIRUBIN,TOTAL 0.9 MG/DL (0.2-1.0); BLOOD UREA NITROGEN 16 MG/DL (7-18); CALCIUM LEVEL 9.1 MG/DL (8.8-10.2); CARBON DIOXIDE LEVEL 30 MEQ/L (21-32); CHLORIDE LEVEL 105 MEQ/L (98-107); CHOLESTEROL LEVEL 235 MG/DL (<200); CHOLESTEROL RISK RATIO 4.351 (<5); CREATININE FOR GFR 0.96 MG/DL (0.55-1.30); FREE T4 0.82 NG/DL (0.76-1.46); GLOMERULAR FILTRATION RATE > 60.0 (>45); GLUCOSE, FASTING 110 MG/DL (70-100); HDL CHOLESTEROL 54 MG/DL (>40); LDL CHOLESTEROL 147 MG/DL (<100); NON-HDL-C 181 MG/DL; POTASSIUM SERUM 4.1 MEQ/L (3.5-5.1); SODIUM LEVEL 141 MEQ/L (136-145); TRIGLYCERIDES LEVEL 170 MG/DL (<150)
== END ==
LOC: M SFHCADAM 13:27
PROVIDERS: ATTEND Family Medicine
DX: I48.0 Paroxysmal atrial fibrillation (principal); E78.5 Hyperlipidemia, unspecified

== ENCOUNTER → 2020-06-15 | Outpatient (REF) | payer OTHER | LOC: M LAB REF 14:12 | PROVIDERS: ATTEND Dermatology | DX: D23.5 Other benign neoplasm of skin of trunk (principal) ==

== ENCOUNTER → 2020-09-28 | Outpatient (CLI) | payer MEDICARE, OTHER ==
--- NOTE | 2020-09-28 10:37 | REP ---
INDICATION: CALCULUS OF KIDNEY COMPARISON: 03/10/2020 TECHNIQUE: Supine view of the abdomen and pelvis. FINDINGS: Cluster of calcifications in the left mid abdomen measuring up to roughly 5-6 mm suggesting nephrolithiasis and similar to prior examination. Further evaluation of the urinary tract system is limited due to interposed bowel gas and technique. No bowel obstruction. No foreign body. No organomegaly. Skeletal structures demonstrate degenerative changes. IMPRESSION: Findings suggesting multiple nonobstructing left renal calculi. <Electronically signed by Malcolm Miranda > 09/28/20 [id number]
== END ==
LOC: M RAD 10:20
PROVIDERS: ATTEND Urology
DX: N20.0 Calculus of kidney (principal)

== ENCOUNTER → 2020-10-06 | Outpatient (CLI) | payer MEDICARE, OTHER ==
[2020-10-06 12:20] LABS: BLOOD UREA NITROGEN 17 MG/DL (7-18); CALCIUM LEVEL 9.4 MG/DL (8.8-10.2); CARBON DIOXIDE LEVEL 30 MEQ/L (21-32); CHLORIDE LEVEL 106 MEQ/L (98-107); GLOMERULAR FILTRATION RATE > 60.0 (>45); GLUCOSE, FASTING 141 MG/DL (70-100); MAGNESIUM LEVEL 2.1 MG/DL (1.8-2.4); POTASSIUM SERUM 4.1 MEQ/L (3.5-5.1); SODIUM LEVEL 142 MEQ/L (136-145)
== END ==
LOC: M LAB 11:12
PROVIDERS: ATTEND Physician Assistant
DX: I48.0 Paroxysmal atrial fibrillation (principal)
CPT/HCPCS: 36415; 80048; 83735; G0463

== ENCOUNTER 2020-11-02 10:36 | Observation (INO) | payer MEDICARE, OTHER ==
[~2020-11-02] VITALS: Ht 172.7 cm; Wt 93.2 kg
--- NOTE | 2020-11-02 13:53 | REP ---
INDICATION: gi bleed COMPARISON: 05/16/2019. TECHNIQUE: CT Scan of the abdomen and pelvis was performed without intravenous contrast. Sagittal and coronal reconstruction images performed. FINDINGS: Lung bases: Unremarkable. Liver: Grossly unremarkable. Gallbladder: Unremarkable. Spleen: Grossly unremarkable. Adrenals: Normal. Pancreas: Grossly unremarkable.. Kidneys: No hydronephrosis bilaterally. There is an extrarenal pelvis bilaterally. Ureters demonstrate no dilatation or calculus. Two punctate calcifications are seen in the right upper pole collecting system, 4 mm calcification is seen in the mid aspect, and another there are multiple intrarenal calculi throughout the left kidney, larger calculi are in the lower pole, measuring up to 1 cm in diameter. Is seen in the lower pole. There is a 1 cm cyst of the lower pole the left kidney. Small and large bowel: Grossly unremarkable. Free fluid: None. Abdominal aorta: No aneurysm. Adenopathy: None. Appendix: Not inflamed. Osseous structures: There are degenerative changes of the spine without compression deformity. Pelvis: There is a cystic structure in the right ovary unchanged since the prior study measuring 2.8 cm in maximum diameter.. No bladder calculus seen. IMPRESSION: Multiple intrarenal calculi bilaterally without hydroureteronephrosis. No acute abnormality. <Electronically signed by Rui Jones > 11/02/20 [id number]
[2020-11-02 14:15] LABS: BASO % 0.4 % (0.0-1.0); EOS # 0.1 10^3/uL (0.0-0.5); EOS % 1.1 % (0.0-3.0); HEMATOCRIT 28.2 % (36.0-47.0); HEMOGLOBIN 8.9 g/dl (12.0-15.5); LYMPH # 1.4 10^3/uL (1.5-5.0); LYMPH % 15.1 % (24.0-44.0); MEAN CORPUSCULAR HEMOGLOBIN 29.9 pg (27.0-33.0); MEAN CORPUSCULAR HGB CONC 31.6 g/dl (32.0-36.5); MEAN CORPUSCULAR VOLUME 94.6 fl (80.0-96.0); MONO # 0.6 10^3/uL (0.0-0.8); MONO % 6.3 % (2.0-8.0); NEUTROPHILS # 7.2 10^3/uL (1.5-8.5); NEUTROPHILS % 76.4 % (36.0-66.0); PLATELET COUNT, AUTOMATED 244 10^3/uL (150-450); RED BLOOD COUNT 2.98 10^6/uL (4.00-5.40); WHITE BLOOD COUNT 9.4 10^3/uL (4.0-10.0)
[2020-11-02 14:20] LABS: ALBUMIN 3.6 GM/DL (3.2-5.2); ALT/SGPT 22 U/L (12-78); BILIRUBIN,DIRECT 0.1 MG/DL (0.0-0.2); BILIRUBIN,TOTAL 0.5 MG/DL (0.2-1.0); BLOOD UREA NITROGEN 21 MG/DL (7-18); CARBON DIOXIDE LEVEL 29 MEQ/L (21-32); CHLORIDE LEVEL 109 MEQ/L (98-107); CREATININE FOR GFR 0.86 MG/DL (0.55-1.30); GLOMERULAR FILTRATION RATE > 60.0 (>45); GLUCOSE, FASTING 97 MG/DL (70-100); LIPASE 149 U/L (73-393); POTASSIUM SERUM 4.2 MEQ/L (3.5-5.1); SODIUM LEVEL 144 MEQ/L (136-145); TOTAL PROTEIN 6.3 GM/DL (6.4-8.2)
[2020-11-02 14:30] LABS: INR 0.86; PROTHROMBIN TIME 11.9 SECONDS (12.5-14.3)
[2020-11-02] MEDS ORDERED: D31000TA2 PO (15:26)
[2020-11-02] MEDS ORDERED: DILT1CAP3 PO (15:26)
[2020-11-02] MEDS ORDERED: KETO2SHA8 TOP (15:26)
[2020-11-02 16:00] LABS: RSV AMPLIFICATION NEGATIVE (NEGATIVE)
[2020-11-02 16:58] LABS: FERRITIN 10 NG/ML (8-252); IRON (FE) 22 UG/DL (50-170); LDH LACTATE DEHYDROGENASE 199 U/L (84-246); PERCENT SATURATION 5.9 % (13.2-45.0); TOTAL IRON BINDING CAPACITY 370 UG/DL (250-450)
[2020-11-02] MEDS ORDERED: PANTOPRAZOLE 40MG VIAL (C9113 PER 1) IV SCH (18:00)
[2020-11-02] MEDS: CALCIUM ACETATE 667MG GELCAP PO SCH (18:00)
--- NOTE | 2020-11-02 18:43 | HPEPDOC ---
General Date of Admission Nov 02, 2020 at 16:16 Date of Service: Nov 02, 2020 Chief Complaint The patient is a 65-year-old female admitted with a reason for visit of Anemia Gi Bleed. Source: Patient History of Present Illness Mrs. Mandujano is a 65 year old female with history of nephrolithiasis who presents with abdominal pain and melena. It all began on . She had epigastric pain that was intermittent. Abdominal pain could last anywhere from 10 min to 1 hour. Pain improved with food. Otherwise, she also had black diarrhea. She had 2 episodes of this on . Then her diarrhea resolved and she started to have dark brown stools. She spoke to her PCP who told her to come to the ED for evaluation. While in the ED, she was found to be anemic. Her baseline hemoglobin is around 14. On admission hemoglobin was 8.9. Otherwise patient denies any lightheadedness or dizziness, chest pain, dyspnea, or dysuria. Vital signs have been stable. Physical exam significant for epigastric abdominal tenderness. Patient be placed in observation for anemia possibly secondary to upper GI bleed. Home Medications Scheduled Aspirin (Aspirin EC) 81 Mg Tablet.dr, 162 MG PO DAILY, (Reported) Calcium Acetate (Calcium Acetate) 667 Mg Capsule, 667 MG PO BIDWM, (Reported) Cholecalciferol (Vitamin D3) (Vitamin D3) 1,000 Unit Tablet, 1,000 UNITS PO DAILY, (Reported) Diltiazem HCl (Diltiazem 24Hr ER) 180 Mg Cap.sa.24h, 180 MG PO DAILY, (Reported) Fexofenadine HCl (Malathi Allergy) 180 Mg Tab, 180 MG PO DAILY, (Reported) Ketoconazole (Ketoconazole) 120 Ml Shampoo, 5 ML TOP ASDIRECTED, (Reported) APPLY TO SCALP WHEN WASH HAIR Polyethylene Glycol 3350 (Clearlax) 116 Gm Powder, 17 GRAM PO QHS, (Reported) Potassium Citrate (Potassium Citrate ER) 10 Meq Tablet.er, 20 MG PO BID, (Reported) Allergies Coded Allergies: Sulfa (Sulfonamide Antibiotics) (Verified Allergy, Intermediate, hives, 06/17/19) TAPE (Verified Allergy, Intermediate, RASH, SKIN PEELS, 06/17/19) oxycodone (Verified Adverse Reaction, Intermediate, nausea; headaches- migraine, 06/17/19) Past Medical History Medical History 1. Nephrolithiasis, primary oxalosis per nephrology 2. Fatty liver disease 3. Abnormal Pap smear 4. Paroxysmal atrial fibrillation, converted to normal sinus rhythm 5. Hyperlipidemia 6. CARYL on CPAP Surgical History 1. Urethral stent placement in 1997 2. Lithotripsy 3. Cone biopsy 4. C-sections 5. D&C and hysteroscopy 6. Inguinal hernia 7. Left PCNL 8. Second look left PCNL 9. Ureteral stent insertion 2013 10. Left ESWL in 2014 11. EGD and colonoscopy in 2013 12. Ureteral stent placement 2018 13. Left stent removal 2019 Family History Father: Leukemia Mother: Diabetes mellitus, hypertension, heart disease, dementia Social History * Smoker: non-smoker Alcohol: Denies Drugs: denies A-FIB/CHADSVASC A-FIB History Current/History of A-Fib/PAF?: Yes Current PO Anticoag Therapy: No Treatment Reason Anticoagulant not given: Current bleeding Review of Systems Constitutional: Denies: Fever Eyes: Denies: Vision change ENT: Denies: Sore Throat Skin: Denies: Rash Pulmonary: Denies: Dyspnea, Cough Cardiovascular: Denies: Chest Pain Gastrointestinal: Reports: Abdominal Pain (epigastric pain), Melena (On ) Genitourinary: Denies: Dysuria Hematologic: Denies: Bruising Neurological: Denies: Numbness Psych: Denies: Anxiety, Depression Physical Examination General Exam: Positive: Alert, Cooperative Eye Exam: Positive: EOMI; Negative: Sclera icteric ENT Exam: Positive: Atraumatic Neck Exam: Positive: Supple Chest Exam: Positive: Clear to auscultation; Negative: Rales, Rhonchi, Wheezing Heart Exam: Positive: Rate Normal, Regular Rhythm Abdomen Exam: Positive: Normal bowel sounds, Soft; Negative: Tenderness Extremity Exam: Negative: Edema Neuro Exam: Positive: Normal Speech, Cranial Nerves 3-12 NL Psych Exam: Positive: Mental status NL, Mood NL Vital Signs Vital Signs Date Time Temp Pulse Resp B/P (MAP) Pulse Ox O2 Delivery O2 Flow Rate FiO2 11/02/20 17:21 78 16 96 Room Air 11/02/20 17:00 157/84 (108) 11/02/20 10:36 97.2 Laboratory Data Labs 24H Laboratory Tests 2 11/02/20 13:14: Prothrombin Time 11.9, Prothromb Time International Ratio 0.86 11/02/20 13:43: Immature Granulocyte % (Auto) 0.7, Neutrophils (%) (Auto) 76.4H, Lymphocytes (%) (Auto) 15.1L, Monocytes (%) (Auto) 6.3, Eosinophils (%) (Auto) 1.1, Basophils (%) (Auto) 0.4, Neutrophils # (Auto) 7.2, Lymphocytes # (Auto) 1.4L, Monocytes # (Auto) 0.6, Eosinophils # (Auto) 0.1, Basophils # (Auto) 0.0, Reticulocyte # (auto) 101.3H, Nucleated Red Blood Cells % (auto) 0.0, Percent Reticulocyte Count 3.3H, Reticulocyte Hemoglobin Equivalent 35.1, Anion Gap 6L, Glomerular Filtration Rate > 60.0, Calcium Level 9.0, Iron Level 22L, Total Iron Binding Capacity 370, Transferrin % Saturation 5.9L, Ferritin 10, Total Bilirubin 0.5, Direct Bilirubin 0.1, Aspartate Amino Transf (AST/SGOT) 18, Alanine Aminotransferase (ALT/SGPT) 22, Alkaline Phosphatase 104, Lactate Dehydrogenase 199, Total Protein 6.3L, Albumin 3.6, Albumin/Globulin Ratio 1.3, Lipase 149 11/02/20 14:54: Urine Color YELLOW, Urine Appearance CLOUDYH, Urine pH 8.0, Urine Specific [place] 1.009, Urine Protein NEGATIVE, Urine Glucose (UA) NEGATIVE, Urine Ketones NEGATIVE, Urine Blood NEGATIVE, Urine Nitrite NEGATIVE, Urine Bilirubin NEGATIVE, Urine Urobilinogen 0.2, Urine Leukocyte Esterase TRACEH, Urine WBC (Auto) 10H, Urine RBC (Auto) 52H, Urine Hyaline Casts (Auto) 0, Urine Bacteria (Auto) 1+H, Urine Squamous Epithelial Cells 0, Urine Calcium Oxalate Cryst (Auto) SMALL, Urine Sperm (Auto) 11/02/20 14:59: Coronavirus (COVID-19)(PCR) NEGATIVE, Influenza Type A (RT-PCR) NEGATIVE, Influenza Type B (RT-PCR) NEGATIVE, Respiratory Syncytial Virus (PCR) NEGATIVE CBC/BMP Laboratory Tests 11/02/20 13:43 Microbiology Microbiology 11/02/20 Urine Culture, Received Pending Assessment/Plan Mrs. Mandujano is a 65 year old female with history of nephrolithiasis who presents with abdominal pain and melena. At baseline, her hemoglobin was 14, but today it is 8.9. She reported melena and now darker stool. Will order repeat CBC in the morning. If hemoglobin is trending upwards, she would be able to be discharged tomorrow. If she continues to drop, she may need a scope. Plan / VTE VTE Prophylaxis Ordered?: Yes Plan Plan 1. Acute blood loss anemia -Hemoglobin dropped from a baseline of 14 to 8.9 -Patient reported melena on -Suspecting she had an upper GI bleed -May have resolved as her stools are not black but darker -Trend CBC -Occult stool ordered 2. Iron deficiency anemia -Iron 22, Ferritin 10 -Per PCP's note, patient's last colonoscopy was in 2013 -If patient does not have scope during his admission, patient will need outpatient colonoscopy 3. Epigastric pain -Better with food -Patient may have had an ulcer -IV Protonix -If no EGD, consider adding Carafate 4. Atrial fibrillation -Continue rate control with diltiazem -Patient reports only being on aspirin for anticoagulation 5. Allergies -Continue fexofenadine 6. DVT ppx -Possible GI bleed, no chemical ppx -SCD and TEDs Disposition: Pending CBC trend. SUSI YANES DO Nov 02, 2020 18:43
[2020-11-02 22:25] VITALS: BP 140/70
--- NOTE | 2020-11-03 05:24 | ECGEPIP ---
[facility] - ED Test Date: 2020-11-02 Pat Name: VALENTINO LYONS Department: Room: - Gender: Female Auto Service Advisor: vc : 1955 Requested By: Zak Everett Order Number: [id number] Reading MD: José Miguel Thomson Measurements Intervals Dows Rate: 69 P: 59 IA: 174 QRS: 16 QRSD: 108 T: 58 QT: 420 QTc: 450 Interpretive Statements Normal sinus rhythm Nonspecific ST and T wave abnormality previous tracing done 11-05-16 showed atrial fibrillation Electronically Signed on 11-03-2020 5:24:32 EDT by José Miguel Thomson
[2020-11-03 05:45] LABS: HEMATOCRIT 30.6 % (36.0-47.0); HEMOGLOBIN 9.5 g/dl (12.0-15.5); MEAN CORPUSCULAR HEMOGLOBIN 29.4 pg (27.0-33.0); MEAN CORPUSCULAR VOLUME 94.7 fl (80.0-96.0); PLATELET COUNT, AUTOMATED 270 10^3/uL (150-450); RED BLOOD COUNT 3.23 10^6/uL (4.00-5.40); WHITE BLOOD COUNT 9.2 10^3/uL (4.0-10.0)
[2020-11-03 06:00] VITALS: BP 132/74
[2020-11-03 06:04] LABS: BLOOD UREA NITROGEN 16 MG/DL (7-18); CALCIUM LEVEL 8.9 MG/DL (8.8-10.2); CARBON DIOXIDE LEVEL 30 MEQ/L (21-32); CHLORIDE LEVEL 106 MEQ/L (98-107); CREATININE FOR GFR 0.91 MG/DL (0.55-1.30); GLOMERULAR FILTRATION RATE > 60.0 (>45); GLUCOSE, FASTING 92 MG/DL (70-100); SODIUM LEVEL 141 MEQ/L (136-145)
[2020-11-03 08:55] VITALS: BP 131/75
[2020-11-03] MEDS: CALCIUM ACETATE 667MG GELCAP PO SCH (08:55)
[2020-11-03] MEDS ORDERED: VITAMIN D 1,000 INTERNATIONAL UNITS TABLET PO SCH (09:00)
[2020-11-03] MEDS ORDERED: FEXOFENADINE 60 MG TAB PO SCH (09:00)
[2020-11-03] MEDS ORDERED: diltiaZEM **CD** 180 MG CAP PO SCH (09:00)
[2020-11-03] MEDS ORDERED: PANT40TA29 PO (12:45)
[2020-11-03] MEDS ORDERED: FERR325T3 PO (12:47)
--- NOTE | 2020-11-03 13:01 | DS.PDOC ---
Discharge Summary General Date of Admission Nov 02, 2020 at 16:16 Date of Discharge 11/03/2020 Primary Care Physician: A Attending Physician: ASHLEY TINOCO MD Discharge Summary PROCEDURES PERFORMED DURING STAY: None ADMITTING DIAGNOSES: Anemia GIB DISCHARGE DIAGNOSES: History consistent with UGIB Iron deficiency anemia Fatty liver disease Paroxysmal atrial fibrillation Hyperlipidemia CARYL on CPAP Inguinal hernia COMPLICATIONS/CHIEF COMPLAINT: Anemia, GI Bleed. HISTORY OF PRESENT ILLNESS: 65 year old W with a history of nephrolithiasis who presented with abdominal pain and episodic melena. A few days prior to presentation, she developed epigas tric pain that was intermittent with pain that improved with food and she also noted black diarrhea. She had 2 episodes of this on . Then her diarrhea resolved and she started to have dark brown stools. She spoke to her PCP who told her to come to the ED for evaluation. HOSPITAL COURSE: While in the ED, she was found to be anemic. Her baseline hemoglobin is around 14. On admission hemoglobin was 8.9. Otherwise patient denied any lightheadedness or dizziness, chest pain, dyspnea, or dysuria. Vital signs were stable and wnl. Physical exam at presentation was significant for epigastric abdominal tenderness and she was admitted under observation status for likely UGIB. Her melena resolved and she had no episodes while inpatient. Her Hgb remained stable and was 9.4 on repeat. Anemia studies however revealed severe iron deficiency with pending B12 and folate levels. She otherwise tolerated a normal diet and without further episodes of melena and stable Hgb, she is now being discharged home with close PCP followup within 7d and referral to gastroenterology for Gi evaluation likely by EGD/colo for anemia due to chronic GI losses. Her last colonoscopy was in 2003. She is being discharged on BID pantoprazole 40mg and ferrous sulfate 325mg daily. DISCHARGE MEDICATIONS: Please see below. ALLERGIES: Please see below. PHYSICAL EXAMINATION ON DISCHARGE: General: NAD, AAOx3 Eyes: EOMI, anicteric ENT: Atraumatic, MMM Neck: Supple, no palpable adenopathy Chest: Clear to auscultation without rales, rhonchi or wheezing Heart: Rate Normal, Regular Rhythm, no m/r/g Abdomen Normal bowel sounds, Soft, nontender on my examination today Extremities, WWP, no LE edema Neuro: Normal Speech, Cranial Nerves 3-12 NL, grossly nonfocal examination Psych: Mental status NL, Mood NL, AOx3 LABORATORY DATA: Please see below. IMAGING: CT A/P: Lung bases: Unremarkable. Liver: Grossly unremarkable. Gallbladder: Unremarkable. Spleen: Grossly unremarkable. Adrenals: Normal. Pancreas: Grossly unremarkable.. Kidneys: No hydronephrosis bilaterally. There is an extrarenal pelvis bilatera lly. Ureters demonstrate no dilatation or calculus. Two punctate calcifications are seen in the right upper pole collecting system, 4 mm calcification is seen in the mid aspect, and another there are multiple intrarenal calculi throughout the left kidney, larger calculi are in the lower pole, measuring up to 1 cm in diameter. Is seen in the lower pole. There is a 1 cm cyst of the lower pole the left kidney. Small and large bowel: Grossly unremarkable. Free fluid: None. Abdominal aorta: No aneurysm. Adenopathy: None. Appendix: Not inflamed. Osseous structures: There are degenerative changes of the spine without compression deformity. Pelvis: There is a cystic structure in the right ovary unchanged since the prior study measuring 2.8 cm in maximum diameter.. No bladder calculus seen. IMPRESSION: Multiple intrarenal calculi bilaterally without hydroureteronephrosis. No acute abnormality. PROGNOSIS: Good ACTIVITY: As tolerated DIET: Regular DISCHARGE PLAN: PCP within 1w, GI referral to be evaluated within 2w, BID pantoprazole, daily ferrous sulfate DISPOSITION: Home DISCHARGE INSTRUCTIONS: PCP within 1w, GI referral to be evaluated within 2w, BID pantoprazole, daily fe rrous sulfate ITEMS TO FOLLOWUP ON ON OUTPATIENT: Likely UGIB ABIMAEL DISCHARGE CONDITION: Stable TIME SPENT ON DISCHARGE: 35 minutes. Vital Signs/I&Os Vital Signs Date Time Temp Pulse Resp B/P (MAP) Pulse Ox O2 Delivery O2 Flow Rate FiO2 11/03/20 08:55 63 131/75 11/03/20 06:00 97.8 17 97 Room Air I&O- Last 24 Hours up to 6 AM 11/03/20 06:00 Intake Total 200 ml Output Total 225 ml Balance -25 ml Laboratory Data Labs 24H Laboratory Tests 2 11/02/20 13:14: Prothrombin Time 11.9, Prothromb Time International Ratio 0.86 11/02/20 13:43: Immature Granulocyte % (Auto) 0.7, Neutrophils (%) (Auto) 76.4H, Lymphocytes (%) (Auto) 15.1L, Monocytes (%) (Auto) 6.3, Eosinophils (%) (Auto) 1.1, Basophils (%) (Auto) 0.4, Neutrophils # (Auto) 7.2, Lymphocytes # (Auto) 1.4L, Monocytes # (Auto) 0.6, Eosinophils # (Auto) 0.1, Basophils # (Auto) 0.0, Reticulocyte # (auto) 101.3H, Nucleated Red Blood Cells % (auto) 0.0, Percent Reticulocyte Count 3.3H, Reticulocyte Hemoglobin Equivalent 35.1, Anion Gap 6L, Glomerular Filtration Rate > 60.0, Calcium Level 9.0, Iron Level 22L, Total Iron Binding Capacity 370, Transferrin % Saturation 5.9L, Ferritin 10, Total Bilirubin 0.5, Direct Bilirubin 0.1, Aspartate Amino Transf (AST/SGOT) 18, Alanine Aminotransferase (ALT/SGPT) 22, Alkaline Phosphatase 104, Lactate Dehydrogenase 199, Total Protein 6.3L, Albumin 3.6, Albumin/Globulin Ratio 1.3, Lipase 149 11/02/20 14:54: Urine Color YELLOW, Urine Appearance CLOUDYH, Urine pH 8.0, Urine Specific [place] 1.009, Urine Protein NEGATIVE, Urine Glucose (UA) NEGATIVE, Urine Ketones NEGATIVE, Urine Blood NEGATIVE, Urine Nitrite NEGATIVE, Urine Bilirubin NEGATIVE, Urine Urobilinogen 0.2, Urine Leukocyte Esterase TRACEH, Urine WBC (Auto) 10H, Urine RBC (Auto) 52H, Urine Hyaline Casts (Auto) 0, Urine Bacteria (Auto) 1+H, Urine Squamous Epithelial Cells 0, Urine Calcium Oxalate Cryst (Auto) SMALL, Urine Sperm (Auto) 11/02/20 14:59: Coronavirus (COVID-19)(PCR) NEGATIVE, Influenza Type A (RT-PCR) NEGATIVE, Influenza Type B (RT-PCR) NEGATIVE, Respiratory Syncytial Virus (PCR) NEGATIVE 11/03/20 05:29: Nucleated Red Blood Cells % (auto) 0.0, Anion Gap 5L, Glomerular Filtration Rate > 60.0, Calcium Level 8.9 CBC/BMP Laboratory Tests 11/02/20 13:43 11/03/20 05:29 Microbiology Microbiology 11/02/20 Urine Culture - Final, Complete Discharge Medications Scheduled Aspirin (Aspirin EC) 81 Mg Tablet.dr, 162 MG PO DAILY, (Reported) Calcium Acetate (Calcium Acetate) 667 Mg Capsule, 667 MG PO BIDWM, (Reported) Cholecalciferol (Vitamin D3) (Vitamin D3) 1,000 Unit Tablet, 1,000 UNITS PO DAILY, (Reported) Diltiazem HCl (Diltiazem 24Hr ER) 180 Mg Cap.sa.24h, 180 MG PO DAILY, (Reported) Ferrous Sulfate (Ferrous Sulfate) 325 Mg Tablet.dr, 1 TAB PO DAILY Fexofenadine HCl (Malathi Allergy) 180 Mg Tab, 180 MG PO DAILY, (Reported) Ketoconazole (Ketoconazole) 120 Ml Shampoo, 5 ML TOP ASDIRECTED, (Reported) APPLY TO SCALP WHEN WASH HAIR Pantoprazole Sodium (Pantoprazole Sodium) 40 Mg Tablet.dr, 40 MG PO BID Polyethylene Glycol 3350 (Clearlax) 116 Gm Powder, 17 GRAM PO QHS, (Reported) Potassium Citrate (Potassium Citrate ER) 10 Meq Tablet.er, 20 MG PO BID, (Reported) Allergies Coded Allergies: Sulfa (Sulfonamide Antibiotics) (Verified Allergy, Intermediate, hives, ) TAPE (Verified Allergy, Intermediate, RASH, SKIN PEELS, 06/17/19) oxycodone (Verified Adverse Reaction, Intermediate, nausea; headaches- migraine, 06/17/19) ASHLEY TINOCO MD Nov 03, 2020 13:01
[2020-11-03 14:00] VITALS: BP 114/65
== END 2020-11-03 15:40 | disposition home or self-care (01) ==
LOC: M ED 10:36 → M ED INP 16:16 → ENRESERV 19:05 → M MSPAV 22:23
PROVIDERS: ADMIT Internal Medicine; ATTEND Internal Medicine
DX: K92.2 Gastrointestinal hemorrhage, unspecified (principal); D50.0 Iron deficiency anemia secondary to blood loss (chronic); R10.13 Epigastric pain; K76.0 Fatty (change of) liver, not elsewhere classified; I48.0 Paroxysmal atrial fibrillation; E78.49 Other hyperlipidemia; G47.33 Obstructive sleep apnea (adult) (pediatric); Z79.82 Long term (current) use of aspirin; Z79.899 Other long term (current) drug therapy; Z88.2 Allergy status to sulfonamides; Z88.5 Allergy status to narcotic agent
CPT/HCPCS: 36415; 74176; 80048; 80076; 81001; 82728; 83550; 83615; 83690; 85025; 85027; 85046; 85610; 86850; 86900; 86901; 87086; 87631; 93005; 96374; 99285; C9113; G0378

== ENCOUNTER → 2020-12-10 | Outpatient (CLI) | payer MEDICARE, OTHER ==
[~2020-12-10] MED LIST changes: +D31000TA2 PO; +DILT1CAP3 PO; +FERR325T3 PO; +KETO2SHA8 TOP; +PANT40TA29 PO
--- NOTE | 2020-12-14 20:27 | SLEEPHOME ---
DATE: 12/10/2020 ORDERED BY: Arash Porter MD Diagnostic home sleep testing was performed due to concern for persistent obstructive sleep apnea syndrome in this patient with a history of same. For testing, a nocturnal T3 respiratory monitoring device was used. Continuous record was made of pulse, oxygen saturation, air flow, chest and abdominal strain, and body position. Nine hours and 59 minutes of data were reviewed. There were 7 hours and 7 minutes marked as time in bed. During the interval marked time in bed, there were 281 respiratory events identified of 10 seconds in duration or greater for a respiratory event index of 39.5. The events were primarily obstructive. Baseline pulse rate and saturation were unable to be reported as the probe became dislodged. The patient's test was performed in both the supine and nonsupine positions. IMPRESSION: Abnormal home sleep testing with repetitive respiratory events and a respiratory event index of 39.5 per hour is consistent with persistent obstructive sleep apnea syndrome. RECOMMENDATION: The patient should be encouraged to pursue continued treatment for her obstructive sleep apnea syndrome. cc: PAYAM ALBA MD
== END ==
LOC: M SLEEP HO 11:42
PROVIDERS: ATTEND Internal Medicine Pulmonary Disease
DX: G47.33 Obstructive sleep apnea (adult) (pediatric) (principal)

== ENCOUNTER → 2020-12-30 | Outpatient (CLI) | payer MEDICARE, OTHER ==
--- NOTE | 2020-12-30 15:44 | REPMRS ---
Patient History The patient states she has not had a clinical breast exam in over a year. Family history of prostate cancer at age 57 in brother. No breast complaints today Patient signed the MRS sheet 1st covid vaccine 08/07/20-left arm-Pfizer 2nd covid vaccine 08/28/20-left arm Priors on PACS Patient Identification Verified Digital Woman Screen Mammo: December 30, 2020 - Exam #: [id number] Bilateral CC and MLO view(s) were taken. Technologist: Symone Pimentel, Technologist Prior study comparison: September 13, 2017, digital woman screen mammo performed at [facility]. April 18, 2014, digital woman screen mammo performed at [facility]. FINDINGS: There are scattered fibroglandular densities. Screening. Digital screening (2D) mammography was performed bilaterally in the CC and MLO projections. Additionally, breast tomosynthesis (3D mammography) was performed bilaterally in the CC and MLO projections. Todays exam was compared to the prior exam/exams. By history, the patient has no complaints of a palpable breast abnormality or other significant breast complaints. The breasts are unchanged in size and shape. There are no janet-soft tissue densities or spiculated masses. There is no internal architectural distortion. Once again, stable benign appearing calcifications are seen.There are no suspicious janet-calcific clusters. Skin thickening or nipple retraction is not present. IMPRESSION: BI-RADS Category 2- Benign Findings. There is no evidence of malignant alteration of the breasts. Followup examination recommended in one year. The Volpara volumetric breast density category is B, there are scattered areas of fibroglandular densities. This mammogram was read with the assistance of [employer],an FDA approved computer aided detection system for mammography. The lifetime Tyrer-Cuzick score is 8.4 % Negative x-ray reports should not delay surgical consultation if a dominant or clinically suspicious mass is present. Not all breast cancers can be identified by mammography. Therefore, we recommend that you continue to perform regular breast self-examination and physical examination and then promptly contact your physician of any concerns or changes. Adenosis and dense breasts may obscure an underlying neoplasm. Assessment: BI-RADS/ACR category 2 mammogram. Benign Findings. Recommendation Routine screening mammogram of both breasts in 1 year. Electronically Signed By: Kelvin Cespedes, 12/30/20 0016
== END ==
LOC: M WHC 14:54
PROVIDERS: ATTEND Family Medicine
DX: Z12.31 Encounter for screening mammogram for malignant neoplasm of breast (principal); Z80.42 Family history of malignant neoplasm of prostate

== ENCOUNTER → 2021-01-01 | Outpatient (CLI) | payer MEDICARE, OTHER ==
[2021-01-01 10:43] LABS: HEMATOCRIT 42.9 % (36.0-47.0); HEMOGLOBIN 13.4 g/dl (12.0-15.5); MEAN CORPUSCULAR HGB CONC 31.2 g/dl (32.0-36.5); MEAN CORPUSCULAR VOLUME 92.9 fl (80.0-96.0); PLATELET COUNT, AUTOMATED 254 10^3/uL (150-450); RED BLOOD COUNT 4.62 10^6/uL (4.00-5.40); WHITE BLOOD COUNT 6.8 10^3/uL (4.0-10.0)
[2021-01-01 11:34] LABS: ALBUMIN 3.7 GM/DL (3.2-5.2); ALT/SGPT 18 U/L (12-78); BILIRUBIN,TOTAL 0.8 MG/DL (0.2-1.0); BLOOD UREA NITROGEN 19 MG/DL (7-18); CALCIUM LEVEL 8.6 MG/DL (8.8-10.2); CARBON DIOXIDE LEVEL 27 MEQ/L (21-32); CHLORIDE LEVEL 108 MEQ/L (98-107); CHOLESTEROL LEVEL 261 MG/DL (<200); CHOLESTEROL RISK RATIO 4.924 (<5); CREATININE FOR GFR 0.88 MG/DL (0.55-1.30); FERRITIN 12 NG/ML (8-252); GLOMERULAR FILTRATION RATE > 60.0 (>45); GLUCOSE, FASTING 86 MG/DL (70-100); HDL CHOLESTEROL 53 MG/DL (>40); IRON (FE) 46 UG/DL (50-170); LDL CHOLESTEROL 174 MG/DL (<100); NON-HDL-C 208 MG/DL; PERCENT SATURATION 12.4 % (13.2-45.0); POTASSIUM SERUM 4.2 MEQ/L (3.5-5.1); SODIUM LEVEL 141 MEQ/L (136-145); TOTAL IRON BINDING CAPACITY 372 UG/DL (250-450); TRIGLYCERIDES LEVEL 169 MG/DL (<150)
== END ==
LOC: M LAB 09:47
PROVIDERS: ATTEND Family Medicine
DX: K92.2 Gastrointestinal hemorrhage, unspecified (principal); D62 Acute posthemorrhagic anemia; E78.5 Hyperlipidemia, unspecified; I48.0 Paroxysmal atrial fibrillation

== ENCOUNTER → 2021-03-03 | Outpatient (CLI) | payer MEDICARE, OTHER ==
[~2021-03-03] MED LIST changes: +ATOR1TAB19 PO
== END ==
LOC: M LABSMTC 10:51
PROVIDERS: ATTEND Anesthesiology
DX: Z01.812 Encounter for preprocedural laboratory examination (principal); Z20.822 Contact with and (suspected) exposure to COVID-19

== ENCOUNTER 2021-03-08 09:27 | Day surgery (SDC) | payer MEDICARE, OTHER ==
[~2021-03-08] VITALS: Ht 177.8 cm; Wt 94.8 kg
[~2021-03-08 09:27] MED LIST changes: +NS 1,000 ML IV ONE
[2021-03-08] MEDS ORDERED: propofoL 500 MG/50 ML VIAL As Ordered ONE (10:10)
[2021-03-08] MEDS ORDERED: LIDOCAINE 2% 100MG/5ML SDV (FOR ANES.) As Ordered ONE (10:10)
[2021-03-08] MEDS ORDERED: fentaNYL 100 MCG/2 ML INJECTION (J3010) As Ordered ONE (10:10)
--- NOTE | 2021-03-08 11:35 | ROOR ---
Patient Name: Veronica Mandujano Procedure Date: 03/08/2021 10:45 AM Date of : 1955 Age: 65 Room: [facility] Gender: Female Note Status: Finalized Procedure: Upper GI endoscopy Indications: Iron deficiency anemia Providers: Mitch Tavera MD Referring MD: Sin Graff MD Requesting Provider: Medicines: Monitored Anesthesia Care Complications: No immediate complications. Estimated blood loss: None. Procedure: Pre-Anesthesia Assessment: - Prior to the procedure, a History and Physical was performed, and patient medications and allergies were reviewed. The patient is competent. The risks and benefits of the procedure and the sedation options and risks were discussed with the patient. All questions were answered and informed consent was obtained. Patient identification and proposed procedure were verified by the physician, the nurse and the anesthesiologist in the procedure room. Mental Status Examination: alert and oriented. Airway Examination: normal oropharyngeal airway and neck mobility. Respiratory Examination: clear to auscultation. CV Examination: normal. Prophylactic Antibiotics: The patient does not require prophylactic antibiotics. Prior Anticoagulants: The patient has taken no previous anticoagulant or antiplatelet agents. ASA Grade Assessment: II - A patient with mild systemic disease. After reviewing the risks and benefits, the patient was deemed in satisfactory condition to undergo the procedure. The anesthesia plan was to use monitored anesthesia care (MAC). Immediately prior to administration of medications, the patient was re-assessed for adequacy to receive sedatives. The heart rate, respiratory rate, oxygen saturations, blood pressure, adequacy of pulmonary ventilation, and response to care were monitored throughout the procedure. The physical status of the patient was re-assessed after the procedure. The Endoscope was introduced through the mouth, and advanced to the second part of duodenum. The upper GI endoscopy was accomplished without difficulty. The patient tolerated the procedure well. Findings: The examined esophagus was normal. The Z-line was regular and was found at the gastroesophageal junction. One non-bleeding cratered gastric ulcer with a clean ulcer base (Daniel Class III) was found on the posterior wall of the gastric antrum. The lesion was 15 mm in largest dimension. Biopsies were taken with a cold forceps for histology. Biopsies were taken with a cold forceps for Helicobacter pylori testing. Verification of patient identification for the specimen was done by the physician and nurse using the patient's name, date and medical record number. Estimated blood loss was minimal. The duodenal bulb and second portion of the duodenum were normal. Impression: - Normal esophagus. - Z-line regular, at the gastroesophageal junction. - Non-bleeding gastric ulcer with a clean ulcer base (Daniel Class III). Biopsied. - Normal duodenal bulb and second portion of the duodenum. Recommendation: - Patient has a contact number available for emergencies. The signs and symptoms of potential delayed complications were discussed with the patient. Return to normal activities tomorrow. Written discharge instructions were provided to the patient. - High fiber diet. - Continue present medications. - Await pathology results. - Use Protonix (pantoprazole) 40 mg PO twice daily - to be taken in morning (1/2 hour before breakfast) and at bedtime ( atleast 3 hours after last meal) for 8 weeks. - Telephone GI clinic for pathology results in 2 weeks. - Repeat upper endoscopy in 3 months to check healing and to evaluate the response to therapy. - Return to GI clinic in 2 months. - Return to primary care physician. Procedure Code(s): --- Professional --- 46606, Esophagogastroduodenoscopy, flexible, transoral; with biopsy, single or multiple Diagnosis Code(s): --- Professional --- K25.9, Gastric ulcer, unspecified as acute or chronic, without hemorrhage or perforation D50.9, Iron deficiency anemia, unspecified CPT copyright 2019 [employer]. All rights reserved. The codes documented in this report are preliminary and upon pan shaker review may be revised to meet current compliance requirements. Mitch Tavera MD Mitch Tavera MD 03/08/2021 11:34:59 AM Electronically signed by Mitch Tavera MD Number of Addenda: 0 Note Initiated On: 03/08/2021 10:45 AM Estimated Blood Loss: Estimated blood loss: none.
--- NOTE | 2021-03-08 11:37 | ROOR ---
Patient Name: Veronica Mandujano Procedure Date: 03/08/2021 10:45 AM Date of : 1955 Age: 65 Room: [facility] Gender: Female Note Status: Finalized Procedure: Colonoscopy Indications: Screening for colorectal malignant neoplasm Providers: Mitch Tavera MD Referring MD: Sin Graff MD Requesting Provider: Medicines: Monitored Anesthesia Care Complications: No immediate complications. Procedure: Pre-Anesthesia Assessment: - Prior to the procedure, a History and Physical was performed, and patient medications and allergies were reviewed. The patient is competent. The risks and benefits of the procedure and the sedation options and risks were discussed with the patient. All questions were answered and informed consent was obtained. Patient identification and proposed procedure were verified by the physician, the nurse and the anesthesiologist in the procedure room. Mental Status Examination: alert and oriented. Airway Examination: normal oropharyngeal airway and neck mobility. Respiratory Examination: clear to auscultation. CV Examination: normal. Prophylactic Antibiotics: The patient does not require prophylactic antibiotics. Prior Anticoagulants: The patient has taken no previous anticoagulant or antiplatelet agents. ASA Grade Assessment: II - A patient with mild systemic disease. After reviewing the risks and benefits, the patient was deemed in satisfactory condition to undergo the procedure. The anesthesia plan was to use monitored anesthesia care (MAC). Immediately prior to administration of medications, the patient was re-assessed for adequacy to receive sedatives. The heart rate, respiratory rate, oxygen saturations, blood pressure, adequacy of pulmonary ventilation, and response to care were monitored throughout the procedure. The physical status of the patient was re-assessed after the procedure. The Colonoscope was introduced through the anus and advanced to the terminal ileum, with identification of the appendiceal orifice and IC valve. The colonoscopy was performed without difficulty. The patient tolerated the procedure well. The quality of the bowel preparation was good. The terminal ileum, ileocecal valve, appendiceal orifice, and rectum were photographed. Scope insertion time was 2 minutes. Scope insertion time was 8 minutes. The total duration of the procedure was 10 minutes. Findings: The perianal and digital rectal examinations were normal. The terminal ileum appeared normal. Three sessile polyps were found in the rectum and ascending colon. The polyps were 5 to 8 mm in size. These polyps were removed with a cold snare. Resection and retrieval were complete. Verification of patient identification for the specimen was done by the physician and nurse using the patient's name, date and medical record number. Estimated blood loss was minimal. Non-bleeding external and internal hemorrhoids were found during retroflexion. The hemorrhoids were medium-sized. Impression: - The examined portion of the ileum was normal. - Three 5 to 8 mm polyps in the rectum and in the ascending colon, removed with a cold snare. Resected and retrieved. - Non-bleeding external and internal hemorrhoids. Recommendation: - Patient has a contact number available for emergencies. The signs and symptoms of potential delayed complications were discussed with the patient. Return to normal activities tomorrow. Written discharge instructions were provided to the patient. - High fiber diet. - Continue present medications. - Await pathology results. - Repeat colonoscopy in 5 years for surveillance based on pathology results. - Return to GI clinic in 2 months. - Follow the recommendations as per the other procedure note. - Return to primary care physician. Procedure Code(s): --- Professional --- 72644, Colonoscopy, flexible; with removal of tumor(s), polyp(s), or other lesion(s) by snare technique Diagnosis Code(s): --- Professional --- Z12.11, Encounter for screening for malignant neoplasm of colon K64.8, Other hemorrhoids K62.1, Rectal polyp K63.5, Polyp of colon CPT copyright 2019 [employer]. All rights reserved. The codes documented in this report are preliminary and upon lay out and detail drafter review may be revised to meet current compliance requirements. Mitch Tavera MD Mitch Tavera MD 03/08/2021 11:37:21 AM Electronically signed by Mitch Tavera MD Number of Addenda: 0 Note Initiated On: 03/08/2021 10:45 AM Estimated Blood Loss: Estimated blood loss was minimal.
[2021-03-08 11:50] VITALS: BP 146/73
== END 2021-03-08 12:02 | disposition home or self-care (01) ==
LOC: M OPP 09:27
PROVIDERS: ATTEND Internal Medicine Gastroenterology
DX: Z12.11 Encounter for screening for malignant neoplasm of colon (principal); K63.5 Polyp of colon; K64.8 Other hemorrhoids; K25.9 Gastric ulcer, unspecified as acute or chronic, without hemorrhage or perforation; D50.9 Iron deficiency anemia, unspecified; I48.91 Unspecified atrial fibrillation; G47.30 Sleep apnea, unspecified; Z79.899 Other long term (current) drug therapy; Z88.2 Allergy status to sulfonamides; Z88.5 Allergy status to narcotic agent; Z91.048 Other nonmedicinal substance allergy status; Z87.19 Personal history of other diseases of the digestive system
CPT/HCPCS: 43239; 45385; 88305; J3010

== ENCOUNTER → 2021-03-29 | Outpatient (CLI) | payer MEDICARE, OTHER ==
[~2021-03-29] MED LIST changes: -NS 1,000 ML IV ONE
[2021-03-29 10:43] LABS: HEMATOCRIT 43.8 % (36.0-47.0); MEAN CORPUSCULAR HEMOGLOBIN 29.1 pg (27.0-33.0); MEAN CORPUSCULAR VOLUME 91.1 fl (80.0-96.0); PLATELET COUNT, AUTOMATED 251 10^3/uL (150-450); RED BLOOD COUNT 4.81 10^6/uL (4.00-5.40); WHITE BLOOD COUNT 8.3 10^3/uL (4.0-10.0)
[2021-03-29 11:14] LABS: ALBUMIN 3.7 GM/DL (3.2-5.2); BILIRUBIN,TOTAL 0.7 MG/DL (0.2-1.0); CALCIUM LEVEL 9.3 MG/DL (8.8-10.2); CHOLESTEROL RISK RATIO 3.338 (<5); CREATININE FOR GFR 1.16 MG/DL (0.55-1.30); GLOMERULAR FILTRATION RATE 49.9 (>45); PERCENT SATURATION 20.1 % (13.2-45.0); TOTAL PROTEIN 7.1 GM/DL (6.4-8.2)
== END ==
LOC: M LAB 09:22
PROVIDERS: ATTEND Family Medicine
DX: E78.5 Hyperlipidemia, unspecified (principal); D62 Acute posthemorrhagic anemia

== ENCOUNTER → 2021-04-05 | Outpatient (CLI) | payer MEDICARE, OTHER ==
--- NOTE | 2021-04-05 13:40 | REP ---
INDICATION: CALCULUS OF KIDNEY. COMPARISON: 09/28/2020 FINDINGS: KUB shows the intestinal gas pattern to be nonspecific. The organ silhouettes insofar as delineated are unremarkable. There is no evidence of free intraperitoneal air. Multiple calcifications are again seen superimposed over the inferior pole region of the left nephric silhouette obscured by bowel content. The right nephric silhouette is obscured by bowel content. Two calcifications are seen in the region of the lower pole but I cannot say with certainty whether those densities are within the colon or kidney. IMPRESSION: As above <Electronically signed by Kelvin Cespedes > 04/05/21 [id number]
== END ==
LOC: M RAD 09:41
PROVIDERS: ATTEND Urology
DX: N20.0 Calculus of kidney (principal)

== ENCOUNTER → 2022-04-11 | Outpatient (CLI) | payer MEDICARE, OTHER ==
[~2022-04-11] MED LIST changes: -D31000TA2 PO; +VITA100093 PO
== END ==
LOC: M RAD 09:53
PROVIDERS: ATTEND Urology
DX: N20.0 Calculus of kidney (principal)

== ENCOUNTER → 2022-05-27 | Outpatient (CLI) | payer MEDICARE, OTHER | LOC: M RAD 16:57 | PROVIDERS: ATTEND Urology | DX: N20.0 Calculus of kidney (principal) ==

== ENCOUNTER → 2022-06-14 | Outpatient (CLI) | payer MEDICARE, OTHER ==
[~2022-06-14] MED LIST changes: +ALLE24TA7 PO; +POTA10808
[2022-06-14 12:12] LABS: HEMATOCRIT 45.7 % (36.0-47.0); MEAN CORPUSCULAR HEMOGLOBIN 31.1 pg (27.0-33.0); MEAN CORPUSCULAR HGB CONC 32.8 g/dl (32.0-36.5); MEAN CORPUSCULAR VOLUME 94.8 fl (80.0-96.0); PLATELET COUNT, AUTOMATED 275 10^3/uL (150-450); RED BLOOD COUNT 4.82 10^6/uL (4.00-5.40)
[2022-06-14 12:32] LABS: BLOOD UREA NITROGEN 20 MG/DL (9-23); CALCIUM LEVEL 9.6 MG/DL (8.3-10.6); CARBON DIOXIDE LEVEL 28 MMOL/L (20-31); CHLORIDE LEVEL 101 MMOL/L (98-107); CREATININE FOR GFR 0.97 MG/DL (0.55-1.30); GLOMERULAR FILTRATION RATE > 60.0 (>45); GLUCOSE, FASTING 89 MG/DL (74-106); POTASSIUM SERUM 4.1 MMOL/L (3.5-5.1); SODIUM LEVEL 139 MMOL/L (136-145)
== END ==
LOC: M RAD 09:15
PROVIDERS: ATTEND Urology
DX: Z01.818 Encounter for other preprocedural examination (principal); N20.0 Calculus of kidney; N39.0 Urinary tract infection, site not specified

== ENCOUNTER → 2022-06-19 | Outpatient (CLI) | payer MEDICARE, OTHER | LOC: M LABSMTC 09:43 | PROVIDERS: ATTEND Anesthesiology | DX: Z01.812 Encounter for preprocedural laboratory examination (principal); Z20.822 Contact with and (suspected) exposure to COVID-19 ==

== ENCOUNTER 2022-06-24 10:31 | Day surgery (SDC) | payer MEDICARE, OTHER ==
[~2022-06-24] VITALS: Ht 177.8 cm; Wt 100.2 kg
[~2022-06-24 10:31] MED LIST changes: +ACETAMINOPHEN 1000MG 100ML IV BAG As Ordered ONE; +LIDOCAINE 2% 100MG/5ML SDV (FOR ANES.) As Ordered ONE; +MIDAZOLAM INJ 2MG/2ML VIAL As Ordered ONE; +ONDANSETRON 4MG 2ML VIAL As Ordered ONE; +ceFAZolin SOD 2 GM in IV 1 EA IV ONE; +fentaNYL 250 MCG/5 ML INJECTION As Ordered ONE; +propofoL 200 MG/20 ML VIAL As Ordered ONE
[2022-06-24] MEDS ORDERED: ISOVUE-300 61% 100ML VIAL As Ordered ONE (11:57)
[2022-06-24] MEDS ORDERED: LR 1,000 ML IV SCH ×2 (12:15→15:20)
[2022-06-24] MEDS ORDERED: ePHEDrine SULFATE 25 MG/5 ML(5MG/ML) SYRINGE As Ordered ONE (12:38)
[2022-06-24] MEDS ORDERED: PHENYLephrine 500MCG 5ML (100MCG/ML) SYRINGE As Ordered ONE (12:43)
[2022-06-24] MEDS ORDERED: ONDANSETRON 4MG 2ML VIAL IV PRN (15:20)
[2022-06-24] MEDS ORDERED: fentaNYL 100 MCG/2 ML INJECTION IV PRN (15:20)
[2022-06-24] MEDS ORDERED: oxyCODONE 5MG TAB PO PRN (15:20)
[2022-06-24] MEDS ORDERED: oxyBUTYnin 5 MG TAB PO PRN (15:30)
[2022-06-24] MEDS ORDERED: PERCOCET 5MG/325MG TAB PO PRN (15:30)
[2022-06-24] MEDS ORDERED: FLOM0.4C39 PO (15:41)
[2022-06-24] MEDS ORDERED: OXYB10TA23 PO (15:41)
[2022-06-24 16:05] VITALS: BP 123/63
== END 2022-06-24 16:30 | disposition home or self-care (01) ==
LOC: M SDC 10:31
PROVIDERS: ATTEND Urology
DX: N20.0 Calculus of kidney (principal); K76.0 Fatty (change of) liver, not elsewhere classified; E78.5 Hyperlipidemia, unspecified; N18.2 Chronic kidney disease, stage 2 (mild); G47.33 Obstructive sleep apnea (adult) (pediatric); Z87.442 Personal history of urinary calculi; I12.9 Hypertensive chronic kidney disease with stage 1 through stage 4 chronic kidney disease, or unspecified chronic kidney disease; E78.00 Pure hypercholesterolemia, unspecified; M19.90 Unspecified osteoarthritis, unspecified site; Z88.2 Allergy status to sulfonamides; Z91.048 Other nonmedicinal substance allergy status; Z88.5 Allergy status to narcotic agent; Z79.899 Other long term (current) drug therapy
CPT/HCPCS: 52356; 74420; 82365; C1769; C1894; C2617; J0131; J0690; J1100; J2250; J2370; J2405; J3010; Q9967

== ENCOUNTER → 2022-10-17 | Outpatient (CLI) | payer MEDICARE, OTHER ==
[~2022-10-17] MED LIST changes: -ACETAMINOPHEN 1000MG 100ML IV BAG As Ordered ONE; +DILT180C38 PO; -DILT1CAP3 PO; +FLOM0.4C39 PO; -LIDOCAINE 2% 100MG/5ML SDV (FOR ANES.) As Ordered ONE; -MIDAZOLAM INJ 2MG/2ML VIAL As Ordered ONE; -ONDANSETRON 4MG 2ML VIAL As Ordered ONE; +OXYB10TA23 PO; -ceFAZolin SOD 2 GM in IV 1 EA IV ONE; -fentaNYL 250 MCG/5 ML INJECTION As Ordered ONE; -propofoL 200 MG/20 ML VIAL As Ordered ONE
[2022-10-17 10:28] LABS: ALBUMIN 3.9 G/DL (3.2-5.2); BILIRUBIN,DIRECT 0.4 MG/DL (<0.4); BILIRUBIN,TOTAL 1.2 MG/DL (0.3-1.2); CHOLESTEROL RISK RATIO 4.07 (<5); HDL CHOLESTEROL 43.4 MG/DL (>40); MAGNESIUM LEVEL 1.9 MG/DL (1.8-2.4); NON-HDL-C 133.6 MG/DL; TOTAL PROTEIN 6.9 G/DL (5.7-8.2)
== END ==
LOC: M LAB 09:12
PROVIDERS: ATTEND Physician Assistant
DX: E78.2 Mixed hyperlipidemia (principal); I48.0 Paroxysmal atrial fibrillation

== ENCOUNTER → 2022-12-26 | Outpatient (CLI) | payer MEDICARE, OTHER | LOC: M LAB 08:51 | PROVIDERS: ATTEND Urology | DX: N20.0 Calculus of kidney (principal) ==

== ENCOUNTER → 2023-03-02 | Outpatient (CLI) | payer MEDICARE, OTHER | LOC: M WHC 12:07 | PROVIDERS: ATTEND Physician Assistant | DX: Z00.00 Encounter for general adult medical examination without abnormal findings (principal); Z79.899 Other long term (current) drug therapy ==

== ENCOUNTER → 2023-03-22 | Outpatient (CLI) | payer MEDICARE, OTHER | LOC: M WHC 11:02 | PROVIDERS: ATTEND Physician Assistant | DX: Z12.31 Encounter for screening mammogram for malignant neoplasm of breast (principal) ==

== ENCOUNTER → 2023-04-03 | Outpatient (CLI) | payer MEDICARE, OTHER | LOC: M RAD 08:56 | PROVIDERS: ATTEND Urology | DX: N20.0 Calculus of kidney (principal) ==

== ENCOUNTER → 2023-06-13 | Outpatient (CLI) | payer MEDICARE, OTHER | LOC: M RAD 12:07 | PROVIDERS: ATTEND Urology | DX: N20.0 Calculus of kidney (principal) ==

== ENCOUNTER → 2023-10-16 | Outpatient (CLI) | payer MEDICARE, OTHER | LOC: M RAD 09:06 | PROVIDERS: ATTEND Urology | DX: N20.0 Calculus of kidney (principal) ==

== ENCOUNTER → 2023-11-13 | Outpatient (CLI) | payer MEDICARE, OTHER ==
[~2023-11-13] MED LIST changes: -POTA10808
[2023-11-13 10:08] LABS: HEMATOCRIT 41.7 % (36.0-47.0); HEMOGLOBIN 13.9 g/dl (12.0-15.5); MEAN CORPUSCULAR HEMOGLOBIN 31.6 pg (27.0-33.0); MEAN CORPUSCULAR HGB CONC 33.3 g/dl (32.0-36.5); MEAN CORPUSCULAR VOLUME 94.8 fl (80.0-96.0); PLATELET COUNT, AUTOMATED 241 10^3/uL (150-450); WHITE BLOOD COUNT 8.4 10^3/uL (4.0-10.0)
[2023-11-13 10:38] LABS: CALCIUM LEVEL 9.2 MG/DL (8.3-10.6); CREATININE FOR GFR 1.1 MG/DL (0.55-1.30); GLOMERULAR FILTRATION RATE 52.6 (>45); POTASSIUM SERUM 4.3 MMOL/L (3.5-5.1)
== END ==
LOC: M RAD 09:00
PROVIDERS: ATTEND Urology
DX: Z01.818 Encounter for other preprocedural examination (principal); N20.0 Calculus of kidney

== ENCOUNTER → 2023-11-15 | Outpatient (REF) | payer MEDICARE, OTHER ==
[2023-11-15 13:45] LABS: APPEARANCE, URINE CLEAR (CLEAR); BACTERIA, URINE AUTO 1+ (NEGATIVE); BILIRUBIN, URINE AUTO NEGATIVE (NEGATIVE); BLOOD, URINE BLOOD 1+ (NEGATIVE); COLOR, URINE YELLOW (YELLOW); GLUCOSE, URINE (UA) AUTO NEGATIVE (NEGATIVE); KETONE, URINE AUTO NEGATIVE (NEGATIVE); LEUKOCYTE ESTERASE, URINE AUTO 3+ (NEGATIVE); NITRITE, URINE AUTO NEGATIVE (NEGATIVE); PROTEIN, URINE AUTO NEGATIVE (NEGATIVE); RBC, URINE AUTO 2 /HPF (0-3); SPECIFIC GRAVITY URINE AUTO 1.006 (1.002-1.035); SQUAMOUS EPITHELIAL CELL UR AU 0 /HPF (0-6); UROBILINOGEN, URINE AUTO 0.2 mg/dL (0.0-2.0); WBC, URINE AUTO 19 /HPF (0-3)
== END ==
LOC: M SMT 12:49
PROVIDERS: ATTEND Urology
DX: Z01.818 Encounter for other preprocedural examination (principal); N20.0 Calculus of kidney; N39.0 Urinary tract infection, site not specified

== ENCOUNTER 2023-11-22 07:12 | Day surgery (SDC) | payer MEDICARE, OTHER ==
[~2023-11-22] VITALS: Ht 177.8 cm; Wt 99.2 kg
[2023-11-22] MEDS ORDERED: LIDOCAINE 2% 100MG/5ML SDV (FOR ANES.) As Ordered ONE (07:46)
[2023-11-22] MEDS ORDERED: propofoL 200 MG/20 ML VIAL As Ordered ONE (07:46)
[2023-11-22] MEDS ORDERED: ONDANSETRON 4MG 2ML VIAL As Ordered ONE (07:46)
[2023-11-22] MEDS ORDERED: fentaNYL 100 MCG/2 ML INJECTION As Ordered ONE (07:49)
[2023-11-22] MEDS ORDERED: MIDAZOLAM INJ 2MG/2ML VIAL As Ordered ONE (07:49)
[2023-11-22] MEDS: ceFAZolin SOD 2 GM in IV 1 EA IV ONE (08:50)
[2023-11-22] MEDS ORDERED: ACETAMINOPHEN 1000MG 100ML IV BAG As Ordered ONE (09:11)
[2023-11-22] MEDS: ISOVUE-300 61% 100ML VIAL As Ordered ONE (09:19)
[2023-11-22] MEDS ORDERED: fentaNYL 100 MCG/2 ML INJECTION IV PRN (11:45)
[2023-11-22] MEDS ORDERED: ONDANSETRON 4MG 2ML VIAL IV PRN (11:45)
[2023-11-22] MEDS ORDERED: LR 1,000 ML IV SCH (11:45)
[2023-11-22 12:25] VITALS: BP 132/72; TEMP 98; O2SAT 96
[2023-11-22] MEDS ORDERED: PERCOCET 5MG/325MG TAB PO PRN (13:30)
[2023-11-22] MEDS ORDERED: CEPH500C PO (13:30)
[2023-11-22] MEDS ORDERED: oxyBUTYnin 5 MG TAB PO PRN (13:30)
== END 2023-11-22 12:54 | disposition home or self-care (01) ==
LOC: M SDC 07:12
PROVIDERS: ATTEND Urology
DX: N13.2 Hydronephrosis with renal and ureteral calculous obstruction (principal); I12.9 Hypertensive chronic kidney disease with stage 1 through stage 4 chronic kidney disease, or unspecified chronic kidney disease; N18.2 Chronic kidney disease, stage 2 (mild); I34.1 Nonrheumatic mitral (valve) prolapse; E78.00 Pure hypercholesterolemia, unspecified; Z79.899 Other long term (current) drug therapy; G47.30 Sleep apnea, unspecified; Z88.2 Allergy status to sulfonamides; Z88.5 Allergy status to narcotic agent
CPT/HCPCS: 52356; 76000; 82365; C1769; C1894; C2617; J0131; J0690; J1100; J2250; J2405; J3010; Q9967

== ENCOUNTER → 2023-12-13 | Outpatient (CLI) | payer MEDICARE, OTHER ==
[~2023-12-13] MED LIST changes: +CEPH500C PO
== END ==
LOC: M RAD 08:26
PROVIDERS: ATTEND Urology
DX: N20.0 Calculus of kidney (principal)

== ENCOUNTER → 2024-01-01 | Outpatient (CLI) | payer MEDICARE, OTHER ==
[2024-01-01 08:10] LABS: HEMATOCRIT 42.5 % (36.0-47.0); HEMOGLOBIN 13.8 g/dl (12.0-15.5); MEAN CORPUSCULAR HEMOGLOBIN 30.7 pg (27.0-33.0); MEAN CORPUSCULAR HGB CONC 32.5 g/dl (32.0-36.5); MEAN CORPUSCULAR VOLUME 94.7 fl (80.0-96.0); PLATELET COUNT, AUTOMATED 233 10^3/uL (150-450); RED BLOOD COUNT 4.49 10^6/uL (4.00-5.40); WHITE BLOOD COUNT 8.7 10^3/uL (4.0-10.0)
[2024-01-01 08:19] LABS: APPEARANCE, URINE CLEAR (CLEAR); BACTERIA, URINE AUTO NEGATIVE (NEGATIVE); BILIRUBIN, URINE AUTO NEGATIVE (NEGATIVE); BLOOD, URINE BLOOD NEGATIVE (NEGATIVE); COLOR, URINE STRAW (YELLOW); GLUCOSE, URINE (UA) AUTO NEGATIVE (NEGATIVE); KETONE, URINE AUTO NEGATIVE (NEGATIVE); LEUKOCYTE ESTERASE, URINE AUTO 1+ (NEGATIVE); MUCUS, URINE SMALL (NEGATIVE); NITRITE, URINE AUTO NEGATIVE (NEGATIVE); PROTEIN, URINE AUTO NEGATIVE (NEGATIVE); RBC, URINE AUTO 1 /HPF (0-3); SPECIFIC GRAVITY URINE AUTO 1.003 (1.002-1.035); SQUAMOUS EPITHELIAL CELL UR AU 0 /HPF (0-6); UROBILINOGEN, URINE AUTO 0.2 mg/dL (0.0-2.0); WBC, URINE AUTO 9 /HPF (0-3)
[2024-01-01 08:38] LABS: CREATININE FOR GFR 1.14 MG/DL (0.55-1.30); GLOMERULAR FILTRATION RATE 50.5 (>45); POTASSIUM SERUM 4.3 MMOL/L (3.5-5.1)
== END ==
LOC: M LAB 07:26
PROVIDERS: ATTEND Urology
DX: Z01.818 Encounter for other preprocedural examination (principal); N20.0 Calculus of kidney; N39.0 Urinary tract infection, site not specified

== ENCOUNTER 2024-01-04 08:39 | Day surgery (SDC) | payer MEDICARE, OTHER ==
[~2024-01-04] VITALS: Ht 177.8 cm; Wt 99.2 kg
[2024-01-04] MEDS ORDERED: LR 1,000 ML IV SCH (10:05)
[2024-01-04] MEDS ORDERED: LIDOCAINE 2% 100MG/5ML SDV (FOR ANES.) As Ordered ONE (10:09)
[2024-01-04] MEDS ORDERED: propofoL 200 MG/20 ML VIAL As Ordered ONE (10:09)
[2024-01-04] MEDS ORDERED: KETOROLAC 60MG 2ML VIAL As Ordered ONE (10:09)
[2024-01-04] MEDS ORDERED: ACETAMINOPHEN 1000MG 100ML IV BAG As Ordered ONE (10:10)
[2024-01-04] MEDS: ceFAZolin SOD 2 GM in IV 1 EA IV ONE (11:14)
[2024-01-04] MEDS ORDERED: fentaNYL 100 MCG/2 ML INJECTION As Ordered ONE (11:25)
[2024-01-04] MEDS ORDERED: TRAM50TA2 PO (11:31)
[2024-01-04] MEDS ORDERED: FLOM0.4C39 PO (11:31)
[2024-01-04 12:50] VITALS: BP 171/82; TEMP 96.4; O2SAT 98
== END 2024-01-04 13:02 | disposition home or self-care (01) ==
LOC: M SDC 08:39
PROVIDERS: ATTEND Urology
DX: N20.0 Calculus of kidney (principal); I34.1 Nonrheumatic mitral (valve) prolapse; G47.30 Sleep apnea, unspecified; I10 Essential (primary) hypertension; E78.00 Pure hypercholesterolemia, unspecified; M19.90 Unspecified osteoarthritis, unspecified site; Z88.5 Allergy status to narcotic agent; Z88.2 Allergy status to sulfonamides; Z91.048 Other nonmedicinal substance allergy status; Z79.899 Other long term (current) drug therapy
CPT/HCPCS: 50590; 74018; J0131; J0690; J1885; J3010

== ENCOUNTER → 2024-02-05 | Outpatient (CLI) | payer MEDICARE, OTHER ==
[~2024-02-05] MED LIST changes: +TRAM50TA2 PO
== END ==
LOC: M RAD 12:40
PROVIDERS: ATTEND Urology
DX: N20.0 Calculus of kidney (principal)

== ENCOUNTER → 2024-02-05 | Outpatient (REF) | payer MEDICARE, OTHER | LOC: M SMT 17:18 | PROVIDERS: ATTEND Nurse Practitioner Family | DX: N20.0 Calculus of kidney (principal) ==

== ENCOUNTER → 2024-03-05 | Outpatient (CLI) | payer MEDICARE, OTHER | LOC: M WHC 12:32 | PROVIDERS: ATTEND Physician Assistant | DX: Z12.31 Encounter for screening mammogram for malignant neoplasm of breast (principal); Z53.9 Procedure and treatment not carried out, unspecified reason ==

== ENCOUNTER → 2024-03-20 | Outpatient (REF) | payer MEDICARE, OTHER ==
[2024-03-20 15:40] LABS: HEMATOCRIT 42.1 % (36.0-47.0); HEMOGLOBIN 13.7 g/dl (12.0-15.5); MEAN CORPUSCULAR HEMOGLOBIN 31.1 pg (27.0-33.0); MEAN CORPUSCULAR HGB CONC 32.5 g/dl (32.0-36.5); MEAN CORPUSCULAR VOLUME 95.7 fl (80.0-96.0); PLATELET COUNT, AUTOMATED 259 10^3/uL (150-450); WHITE BLOOD COUNT 10.3 10^3/uL (4.0-10.0)
[2024-03-20 17:04] LABS: HEMOGLOBIN A1c 5.3 % (4.0-6.0)
[2024-03-20 17:27] LABS: BILIRUBIN,TOTAL 1.4 MG/DL (0.3-1.2); CREATININE FOR GFR 1.8 MG/DL (0.55-1.30); FREE T4 1.1 NG/DL (0.89-1.76); GLOMERULAR FILTRATION RATE 29.8 (>45); THYROID STIMULATING HORMONE 2.586 uIU/ML (0.55-4.78); TOTAL PROTEIN 7.2 G/DL (5.7-8.2)
== END ==
LOC: M SFHCADAM 11:36
PROVIDERS: ATTEND Family Medicine
DX: R55 Syncope and collapse (principal); G47.10 Hypersomnia, unspecified; Z79.899 Other long term (current) drug therapy

== ENCOUNTER → 2024-04-11 | Outpatient (CLI) | payer MEDICARE, OTHER | LOC: M RAD 12:39 | PROVIDERS: ATTEND Family Medicine | DX: N17.9 Acute kidney failure, unspecified (principal); N20.0 Calculus of kidney ==

== ENCOUNTER → 2024-05-16 | Outpatient (REF) | payer MEDICARE, OTHER ==
[~2024-05-16] MED LIST changes: +POTA10807 PO; -POTA10808 PO; +POTA10809 PO
== END ==
LOC: M SFHCADAM 15:00
PROVIDERS: ATTEND Family Medicine
DX: N17.9 Acute kidney failure, unspecified (principal)

== ENCOUNTER → 2024-05-16 | Outpatient (CLI) | payer MEDICARE, OTHER ==
[2024-05-16 16:48] LABS: HEMATOCRIT 39.3 % (36.0-47.0); HEMOGLOBIN 12.9 g/dl (12.0-15.5); MEAN CORPUSCULAR HEMOGLOBIN 31.8 pg (27.0-33.0); MEAN CORPUSCULAR HGB CONC 32.8 g/dl (32.0-36.5); MEAN CORPUSCULAR VOLUME 96.8 fl (80.0-96.0); PLATELET COUNT, AUTOMATED 257 10^3/uL (150-450); RED BLOOD COUNT 4.06 10^6/uL (4.00-5.40)
[2024-05-16 17:09] LABS: CALCIUM LEVEL 9.9 MG/DL (8.3-10.6); CREATININE FOR GFR 1.27 MG/DL (0.55-1.30); GLOMERULAR FILTRATION RATE 44.5 (>45); POTASSIUM SERUM 4.2 MMOL/L (3.5-5.1)
== END ==
LOC: M LAB 15:37
PROVIDERS: ATTEND Family Medicine
DX: N17.9 Acute kidney failure, unspecified (principal)

== ENCOUNTER → 2024-07-29 | Outpatient (CLI) | payer MEDICARE, OTHER | LOC: M RAD 08:49 | PROVIDERS: ATTEND Nurse Practitioner Family | DX: N20.0 Calculus of kidney (principal); M47.817 Spondylosis without myelopathy or radiculopathy, lumbosacral region; M47.818 Spondylosis without myelopathy or radiculopathy, sacral and sacrococcygeal region ==

== ENCOUNTER → 2025-01-03 | Outpatient (CLI) | payer MEDICARE, OTHER ==
[~2025-01-03] MED LIST changes: -FLOM0.4C39 PO; +KETO120S5 TOP; -KETO2SHA8 TOP; +TAMS-18 PO
== END ==
LOC: M PLAIMG 12:29
PROVIDERS: ATTEND Physician Assistant
DX: I34.1 Nonrheumatic mitral (valve) prolapse (principal); I77.810 Thoracic aortic ectasia; I48.91 Unspecified atrial fibrillation

== ENCOUNTER → 2025-02-03 | Outpatient (CLI) | payer MEDICARE, OTHER | LOC: M RAD 09:28 | PROVIDERS: ATTEND Urology | DX: N20.0 Calculus of kidney (principal) ==

== ENCOUNTER → 2025-03-04 | Outpatient (CLI) | payer MEDICARE, OTHER ==
[2025-03-04 12:21] LABS: PLATELET COUNT, AUTOMATED 272 10^3/uL (150-450)
[2025-03-04 15:10] LABS: CALCIUM LEVEL 9.6 MG/DL (8.3-10.6); CARBON DIOXIDE LEVEL 30.0 MMOL/L (20-31); CHLORIDE LEVEL 103.0 MMOL/L (98-107); CREATININE FOR GFR 1.28 MG/DL (0.55-1.30); GLOMERULAR FILTRATION RATE 45.4 (>45); POTASSIUM SERUM 4.5 MMOL/L (3.5-5.1); SODIUM LEVEL 143.0 MMOL/L (136-145)
== END ==
LOC: M RAD 09:24
PROVIDERS: ATTEND Urology
DX: Z01.818 Encounter for other preprocedural examination (principal); N20.0 Calculus of kidney

== ENCOUNTER → 2025-03-06 | Outpatient (REF) | payer MEDICARE, OTHER ==
[2025-03-06 19:20] LABS: PLATELET COUNT, AUTOMATED 316 10^3/uL (150-450)
[2025-03-06 19:26] LABS: ALT/SGPT 20.0 U/L (7.0-40); AST/SGOT 21.0 U/L (<34); CALCIUM LEVEL 10.0 MG/DL (8.3-10.6); CARBON DIOXIDE LEVEL 30.0 MMOL/L (20-31); CHLORIDE LEVEL 103.0 MMOL/L (98-107); CHOLESTEROL LEVEL 223.0 MG/DL (<200); CHOLESTEROL RISK RATIO 3.58 (<5); CREATININE FOR GFR 1.29 MG/DL (0.55-1.30); GLOMERULAR FILTRATION RATE 44.9 (>45); LDL CHOLESTEROL 121.6 MG/DL (<100); MAGNESIUM LEVEL 2.0 MG/DL (1.8-2.4); NON-HDL-C 160.8 MG/DL; POTASSIUM SERUM 4.3 MMOL/L (3.5-5.1); SODIUM LEVEL 144.0 MMOL/L (136-145); TRIGLYCERIDES LEVEL 196.0 MG/DL (<150)
[2025-03-06 19:27] LABS: FREE T4 1.13 NG/DL (0.89-1.76)
[2025-03-06 19:38] LABS: ESTIMATED AVERAGE GLUCOSE 114.0 MG/DL (60-110)
== END ==
LOC: M SFHCADAM 12:24
PROVIDERS: ATTEND Family Medicine
DX: I48.0 Paroxysmal atrial fibrillation (principal); E78.5 Hyperlipidemia, unspecified; Z13.1 Encounter for screening for diabetes mellitus

== ENCOUNTER → 2025-03-11 | Outpatient (REF) | payer MEDICARE, OTHER | LOC: M SMT 10:26 | PROVIDERS: ATTEND Urology | DX: Z01.818 Encounter for other preprocedural examination (principal); N39.0 Urinary tract infection, site not specified; N20.0 Calculus of kidney ==

== ENCOUNTER 2025-03-21 09:17 | Day surgery (SDC) | payer MEDICARE, OTHER ==
[~2025-03-21] VITALS: Ht 177.8 cm; Wt 99.1 kg
[~2025-03-21 09:17] MED LIST changes: +LIDOCAINE 2% 100 MG/5 ML SDV (FOR ANES.) As Ordered ONE; +ONDANSETRON 4MG/2ML VIAL As Ordered ONE; +dexAMETHasone 4 MG/ML 1 ML VIAL As Ordered ONE
[2025-03-21] MEDS: LR 1,000 ML IV SCH (09:55)
[2025-03-21] MEDS ORDERED: MIDAZOLAM INJ 2 MG/2 ML VIAL As Ordered ONE (10:13)
[2025-03-21] MEDS: ceFAZolin SOD 2 GM IV ONCE IV ONE (11:09)
[2025-03-21] MEDS ORDERED: ACETAMINOPHEN 1000MG/100ML IV BAG As Ordered ONE (11:13)
[2025-03-21] MEDS ORDERED: PHENYLephrine 500MCG 5ML (100MCG/ML) SYRINGE As Ordered ONE (11:16)
[2025-03-21] MEDS: ISOVUE-300 61% 100 ML VIAL As Ordered ONE (13:52)
[2025-03-21] MEDS ORDERED: HYDROMORPHONE HCL 0.5 MG/0.5 ML SYRINGE IV PRN (14:00)
[2025-03-21] MEDS ORDERED: LR 1,000 ML IV SCH (14:00)
[2025-03-21] MEDS ORDERED: ONDANSETRON 4MG/2ML VIAL IV PRN (14:00)
[2025-03-21] MEDS ORDERED: OXYC1TAB23 PO (14:38)
[2025-03-21] MEDS ORDERED: OXYB5TAB14 PO (14:38)
[2025-03-21 14:40] VITALS: BP 111/71; TEMP 97.6; O2SAT 95
[2025-03-21] MEDS ORDERED: PERCOCET 5MG/325MG TAB PO PRN (15:00)
== END 2025-03-21 15:45 | disposition home or self-care (01) ==
LOC: M SDC 09:17
PROVIDERS: ATTEND Urology
DX: N13.2 Hydronephrosis with renal and ureteral calculous obstruction (principal); I12.9 Hypertensive chronic kidney disease with stage 1 through stage 4 chronic kidney disease, or unspecified chronic kidney disease; N18.2 Chronic kidney disease, stage 2 (mild); I34.1 Nonrheumatic mitral (valve) prolapse; G47.30 Sleep apnea, unspecified; E78.00 Pure hypercholesterolemia, unspecified; Z79.899 Other long term (current) drug therapy; Z79.01 Long term (current) use of anticoagulants; Z88.2 Allergy status to sulfonamides; Z88.5 Allergy status to narcotic agent; Z91.048 Other nonmedicinal substance allergy status; Z90.710 Acquired absence of both cervix and uterus
CPT/HCPCS: 52356; 74420; 82365; C1769; C1894; C2617; J0131; J0688; J1100; J2250; J2371; J2405; J3010; Q9967

== ENCOUNTER → 2025-04-11 | Outpatient (CLI) | payer MEDICARE, OTHER ==
[~2025-04-11] MED LIST changes: -LIDOCAINE 2% 100 MG/5 ML SDV (FOR ANES.) As Ordered ONE; -ONDANSETRON 4MG/2ML VIAL As Ordered ONE; +OXYB5TAB14 PO; +OXYC1TAB23 PO; -dexAMETHasone 4 MG/ML 1 ML VIAL As Ordered ONE
== END ==
LOC: M RAD 11:47
PROVIDERS: ATTEND Urology
DX: N20.0 Calculus of kidney (principal); Z96.0 Presence of urogenital implants